=== PATIENT | female | born 2000 | race Caucasian/White ===

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

== ENCOUNTER → 2022-08-05 14:34 | Outpatient (BNVA) | payer MEDICAID, SELFPAY | PROVIDERS: PCP Family Medicine; Visit Provider Nurse Practitioner | DX: R00.0 Tachycardia, unspecified (principal); F41.9 Anxiety disorder, unspecified | CPT/HCPCS: 80053; 84443; 85025 ==

== ENCOUNTER 2023-02-26 10:40 | Outpatient (CLI) | payer MEDICAID, SELFPAY ==
--- NOTE | 2023-02-26 10:47 | XR_ITS ---
WS: [id number] Right shoulder, 2 views, 02/26/2023 Clinical Data: M54.9 - Dorsalgia, unspecified Comparison: None. Findings: No fractures or dislocations are seen. The AC joint is normal. The adjacent right clavicle, right sca pula and ribs are normal. The soft tissues are unremarkable. Impression: Negative right shoulder.
--- NOTE | 2023-02-26 10:47 | XR_ITS ---
WS: [id number] Thoracic spine, 3 views, 02/26/2023 Clinical Data: M54.9 - Dorsalgia, unspecified Comparison: None. Findings: No compression fractures are seen. The disc heights are normal. The paravertebral regions are normal. Impression: Negative thoracic spine.
--- NOTE | 2023-02-26 10:47 | XR_ITS ---
WS: [id number] Right hip, AP and frog-leg views, 02/26/2023 Clinical Data: M54.9 - Dorsalgia, unspecified Comparison: None. Findings: No fractures or dislocations are seen. The right hip joint shows no erosion, sclerosis, flattening, c yst formation or loss of normal spherical shape. The soft tissues are not remarkable. The adjacent pe lvis is normal. Impression: Negative right hip. Tonnis classification: grade 0: normal radiographs
--- NOTE | 2023-02-26 10:47 | XR_ITS ---
WS: [id number] Cervical spine, 3 views, 02/26/2023 Clinical Data: M54.9 - Dorsalgia, unspecified Comparison: None. Findings: No compression fractures are seen. The disc heights are normal. There is no prevertebral so ft tissue swelling. The odontoid is unremarkable. The soft tissues of the neck and the lung apices ar e normal. Impression: Negative cervical spine.
--- NOTE | 2023-02-26 10:47 | XR_ITS ---
WS: [id number] Lumbar spine, 2 views, 02/26/2023 Clinical Data: M54.9 - Dorsalgia, unspecified Comparison: None. Findings: No compression fractures or subluxation is seen. No disc space narrowing is seen. The transverse proc esses and SI joints are normal. Impression: Negative lumbar spine.
== END 2023-02-26 10:41 | disposition home or self-care (01) ==
LOC: RAD 10:44
PROVIDERS: PCP Family Medicine; Visit Provider Nurse Practitioner
DX: M54.2 Cervicalgia (principal); M25.511 Pain in right shoulder; M25.551 Pain in right hip; M54.50 Low back pain, unspecified; M54.6 Pain in thoracic spine
CPT/HCPCS: 72040; 72072; 72100; 73030; 73502

== ENCOUNTER 2023-12-11 01:02 | Emergency (ER) | payer MEDICAID, SELFPAY ==
[2023-12-11 01:08] VITALS: BP 115/76; PULSE 71; RESP 14; TEMP 36.6; O2SAT 100
[2023-12-11 01:52] LABS: Basophils % 0.2 %; Hematocrit 37.4 % (36-47); Lymphocytes # 0.8 10^3/uL (0.8-4.8); Lymphocytes % 4.4 %; Mean Corpuscular Hemoglobin 30.8 pg (27-33); Mean Corpuscular Volume 87.8 fl (85-98); Mean Platelet Volume 10.5 fL (7.4-10.4); Monocytes # 0.5 10^3/uL (0.2-0.9); Neutrophils # 16.83 10^3/uL (1.8-7.7); Nucleated Red Blood Cells % 0 %; Platelet Count 273 10^3/cmm (157-399); Red Blood Count 4.26 10^6/uL (3.85-5.65); Red Cell Distribution Width 11.8 % (12.1-15.1); White Blood Count 18.29 10^3/uL (3.29-11.43)
[2023-12-11] MEDS: ondansetron 2 mg/ML SDV 2 mL 8 MG IVP (01:53)
[2023-12-11] MEDS: sodium chloride 0.9% 1,000 ML 999 ML IV (01:53)
[2023-12-11 02:02] VITALS: BP 126/82; O2SAT 92
[2023-12-11 02:21] LABS: Alanine Aminotransferase 16 U/L (0-33); Albumin Level 4.8 g/dL (3.5-5.2); Alkaline Phosphatase 45 U/L (35-105); Anion Gap 20.8 (5-19); Aspartate Amino Transferase 20 U/L (0-32); Blood Urea Nitrogen 10 mg/dL (6-20); Carbon Dioxide 19 mmol/L (22-29); Chloride 100 mmol/L (98-107); Creatinine Clr Calc Pharmacy 111.1716; Globulin 3.1 g/dL (1.3-4.6); Glomerular Filtration Rate 90.5 mL/min (90-130); Glucose 232 mg/dL (65-115); Magnesium 1.7 mg/dL (1.7-2.3); Osmolality Calculated 288 mOsm/kg (285-295); Potassium 3.8 mmol/L (3.5-5.1); Sodium 136 mmol/L (136-145); Total Bilirubin 0.4 mg/dL (0.15-1.2); Total Protein 7.9 g/dL (6.6-8.7)
[2023-12-11] MEDS: metoclopramide 5 mg/mL SDV 2 mL 10 MG IVP (02:24)
--- NOTE | 2023-12-11 02:27 | W.ED.NAVMDI ---
HPI - Nausea/Vomiting/Diarrhea General: Chief complaint: Nausea/Vomiting/Diarrhea Stated complaint: n/v, body aches, weakness Time Seen by Provider: 12/11/23 01:11 History of Present Illness: Patient arrives to the ER for nausea vomiting chills body aches. Patient says she is throughout more than 20 times a day. Is been going on for about the last 4 days but got severely worse today. Patient is never had anything like this before. She thinks her boyfriend may have given her something. But he is better. Patient denies any abdominal surgeries. Related Data Previous Rx's Medication Instructions Recorded bupropion HCl 75 mg tablet 75 mg PO .in AM #30 tabs 10/14/23 etonogestrel 0.12 mg-ethinyl 1 vag ring vaginal .wear for 3 10/14/23 estradiol 0.015 mg/24 hr vaginal weeks #3 ea ring (NuvaRing) flunisolide 25 mcg (0.025 %) nasal 1 spray intranasal BID #25 mL 10/14/23 spray fluoxetine 20 mg capsule (Prozac) 20 mg PO DAILY #30 caps 10/14/23 levocetirizine 5 mg tablet 5 mg PO DAILY #30 tabs 10/14/23 propranolol 20 mg tablet 20 mg PO BID #60 tabs 10/14/23 ciprofloxacin HCl 500 mg tablet 500 mg PO Q12H #20 tabs 12/11/23 promethazine 25 mg tablet 25 mg PO Q6H PRN nausea and 12/11/23 vomiting #14 tabs Allergies Allergy/AdvReac Type Severity Reaction Status Date / Time No Known Allergies Allergy Verified 12/11/23 01:12 Review of Systems General: Reports: 10 or more systems reviewed and unremarkable except in HPI and below PFSH ED PFSH: Medical History Anxiety Environmental and seasonal allergies Healthy adolescent Surgical History No history of previous surgery Family History Grandfather Diabetes Stroke Denies family history of CAD (coronary artery disease) Dementia Chronic kidney disease (CKD) Anesthesia complication Cancer Hypertension Social History Smoking and tobacco/nicotine status: never used tobacco/nicotine Second hand smoke exposure: No Alcohol intake: never Substance/Drug Use: never Adopted: No Caregiver/support person: No Lives independently: Yes Household members: family Housing: House Marital status: Single Number of children: 0 Highest education level completed: High School Graduate service: No Current occupational status: unemployed and student Pets and animals: Yes Do you think of yourself as: Straight/Heterosexual Current gender identity: Female Female Reproductive History: Date of last menstrual period: 11/27/23 Physical Exam Const: COMMON NORMALS: no acute distress, average body habitus, patient oriented x3, no limitations, healthy appearing, alert and well nourished HENMT: COMMON NORMALS: normocephalic, atraumatic, hearing grossly normal bilaterally, external ears normal, Normal external nose present and moist oral mucous membranes HEAD & SCALP: normocephalic and atraumatic NOSE: Normal external nose present EXTERNAL EAR: Yes external ears normal Neck/C-Spine: COMMON NORMALS: no JVD Chest: COMMONS NORMALS: normal inspection of the chest and normal palpation of entire chest wall Resp: COMMON NORMALS: normal respiratory effort, No retractions, No use of accessory muscles and clear to auscultation bilaterally AUSCULTATION: clear to auscultation bilaterally Cardio: COMMON NORMALS: no JVD, regular rate, regular rhythm, S1 normal heart sound present, S2 normal heart sound present, No gallops present (Cardio), No clicks present (Cardio), No murmurs present (Cardio) and No rub (Cardio) RATE: regular rate RHYTHM: regular rhythm HEART SOUNDS: S1 normal heart sound present and S2 normal heart sound present GI: COMMON NORMALS: Normal to inspection, nondistended, normoactive bowel sounds present, Soft to palpation, No hepatosplenomegaly present and no masses; negative for non-tender (Diffusely tender) PALPATION: Yes Soft to palpation and Yes No hepatosplenomegaly present Neuro: COMMON NORMALS: patient oriented x3 SENSORIUM/ORIENTATION: Yes alert Course Vital Signs: Vital signs: Vital Signs Temperature 97.9 F 12/11/23 01:08 Pulse Rate 66 12/11/23 03:13 Respiratory Rate 14 12/11/23 01:08 Blood Pressure 135/75 12/11/23 03:13 Pulse Oximetry 100 12/11/23 03:13 Oxygen Flow Rate 2 12/11/23 02:02 MDM - Nausea/Vomiting/Diarrhea Medical Decision Making Physical exam was performed, lab work was obtained, white blood cell count 18.29, blood sugar 232, urinalysis positive for 3+ glucose, 4+ ketones 21-50 white blood cells serum ketones negative, procalcitonin negative, patient was bolused 1 L normal saline as well as 8 mg Zofran 10 mg Reglan. Upon reevaluation patient was sleeping soundly. Discussed the lab work with her and her boyfriend. Patient was placed on Cipro and Phenergan and sent home. Patient is follow-up with PCP within next 7 days for further evaluation and treatment. Differential Diagnosis Likely gastroenteritis Medical Records I reviewed the patient's medical records. Lab Data I reviewed the patient's lab results. 12/11/23 01:48 12/11/23 01:48 Laboratory Results WBC 18.29 10^3/uL (3.29-11.43) H 12/11/23 01:48 RBC 4.26 10^6/uL (3.85-5.65) 12/11/23 01:48 Hgb 13.10 g/dL (11.27-16.99) 12/11/23 01:48 Hct 37.4 % (36-47) 12/11/23 01:48 MCV 87.8 fl (85-98) 12/11/23 01:48 MCH 30.8 pg (27-33) 12/11/23 01:48 MCHC 35.0 g/dL (30-55) 12/11/23 01:48 RDW 11.8 % (12.1-15.1) L 12/11/23 01:48 Plt Count 273 10^3/cmm (157-399) 12/11/23 01:48 MPV 10.5 fL (7.4-10.4) H 12/11/23 01:48 Neut % (Auto) 92.0 % 12/11/23 01:48 Lymph % (Auto) 4.4 % 12/11/23 01:48 [place] % (Auto) 3.0 % 12/11/23 01:48 Eos % (Auto) 0.0 % 12/11/23 01:48 Baso % (Auto) 0.2 % 12/11/23 01:48 Neut # (Auto) 16.83 10^3/uL (1.8-7.7) H 12/11/23 01:48 Lymph # (Auto) 0.8 10^3/uL (0.8-4.8) 12/11/23 01:48 [place] # (Auto) 0.5 10^3/uL (0.2-0.9) 12/11/23 01:48 Eos # (Auto) 0.0 10^3/uL (0.0-0.8) 12/11/23 01:48 Baso # (Auto) 0.0 10^3/uL (0.0-0.1) 12/11/23 01:48 Nucleated RBC % (auto) 0 % 12/11/23 01:48 Nucleated RBCs # 0.0 /100WBC 12/11/23 01:48 Sodium 136 mmol/L (136-145) 12/11/23 01:48 Potassium 3.8 mmol/L (3.5-5.1) 12/11/23 01:48 Chloride 100 mmol/L (98-107) 12/11/23 01:48 Carbon Dioxide 19 mmol/L (22-29) L 12/11/23 01:48 Anion Gap 20.8 (5-19) H 12/11/23 01:48 BUN 10 mg/dL (6-20) 12/11/23 01:48 Creatinine 0.8 mg/dL (0.5-0.9) 12/11/23 01:48 GFR Calculation 90.5 mL/min (90-130) 12/11/23 01:48 Glucose 232 mg/dL (65-115) H 12/11/23 01:48 Calculated Osmolality 288 mOsm/kg (285-295) 12/11/23 01:48 Calcium 10.0 mg/dL (8.5-10.5) 12/11/23 01:48 Magnesium 1.7 mg/dL (1.7-2.3) 12/11/23 01:48 Total Bilirubin 0.4 mg/dL (0.15-1.2) 12/11/23 01:48 AST 20 U/L (0-32) 12/11/23 01:48 ALT 16 U/L (0-33) 12/11/23 01:48 Alkaline Phosphatase 45 U/L (35-105) 12/11/23 01:48 Total Protein 7.9 g/dL (6.6-8.7) 12/11/23 01:48 Albumin 4.8 g/dL (3.5-5.2) 12/11/23 01:48 Globulin 3.1 g/dL (1.3-4.6) 12/11/23 01:48 Procalcitonin 0.04 ng/mL (0-0.5) 12/11/23 01:48 HCG, Qual Negative (Negative) 12/11/23 02:35 Urine Color Yellow (Yellow) 12/11/23 02:35 Urine Appearance Slightly cloudy (CLEAR) 12/11/23 02:35 Urine pH 6.0 (5-7) 12/11/23 02:35 Ur Specific [place] 1.034 (1.005-1.030) H 12/11/23 02:35 Urine Protein 1+ (Negative) A 12/11/23 02:35 Urine Glucose (UA) 3+ (Normal) H 12/11/23 02:35 Urine Ketones 4+ (Negative) 12/11/23 02:35 Urine Blood Negative (Negative) 12/11/23 02:35 Urine Nitrate Negative (Negative) 12/11/23 02:35 Urine Bilirubin Negative (Negative) 12/11/23 02:35 Urine Urobilinogen 1.0 mg/dL (Negative) 12/11/23 02:35 Ur Leukocyte Esterase 1+ (Negative) A 12/11/23 02:35 Urine RBC 0-2 /hpf (0-2) 12/11/23 02:35 Urine WBC 21-50 /hpf (0-5) H 12/11/23 02:35 Ur Squamous Epith Cells 5-10 /hpf (0-5) H 12/11/23 02:35 Amorphous Sediment Not Reportable 12/11/23 02:35 Urine Bacteria 3+ /hpf (NONE) H 12/11/23 02:35 Hyaline Casts 2.46 /lpf 12/11/23 02:35 Serum Ketones Negative (Negative) 12/11/23 01:48 All radiology interpretation(s) finalized by discharge Discharge Plan Discharge Patient Disposition: Home Clinical Impression: Gastroenteritis Urinary tract infection Qualifiers: Urinary tract infection type: acute cystitis Hematuria presence: without hematuria Qualified Code(s): N30.00 - Acute cystitis without hematuria Condition: Stable Prescriptions: New ciprofloxacin HCl 500 mg tablet 500 mg PO Q12H Qty: 20 0RF promethazine 25 mg tablet 25 mg PO Q6H PRN (Reason: nausea and vomiting) Qty: 14 0RF No Action etonogestrel-ethinyl estradiol [NuvaRing] 0.12-0.015 mg/24 hr ring 1 vag ring vaginal .wear for 3 weeks Qty: 3 1RF bupropion HCl 75 mg tablet 75 mg PO .in AM Qty: 30 5RF fluoxetine [Prozac] 20 mg capsule 20 mg PO DAILY Qty: 30 5RF levocetirizine 5 mg tablet 5 mg PO DAILY Qty: 30 5RF propranolol 20 mg tablet 20 mg PO BID Qty: 60 5RF flunisolide 25 mcg (0.025 %) spray,non-aerosol 1 spray intranasal BID Qty: 25 5RF Discharge Orders: Discharge ED (Routine); Ordered 12/11/23 Ordered By: Shen Jimenez Referrals: Gokul Carreon, [employer]PERATOR-C [Primary Care Provider] - 1 week Patient Instructions: Acute Nausea and Vomiting (DC), Urinary Tract Infection - Women Activity Restrictions/Additional Instructions: You have been provided a prescription for promethazine for nausea and Cipro as an antibiotic for your urinary tract infection. Please pick these up and take these as directed. Please drink plenty of fluids as to help not to get dehydrated. Please follow-up with your family practitioner within next 7 days for further evaluation and treatment. 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
[2023-12-11 02:40] LABS: HCG Qualitative Urine. Negative (Negative)
[2023-12-11 02:44] LABS: Bilirubin Urine Negative (Negative); Blood Urine Negative (Negative); Glucose Urine UA 3+ (Normal); Ketones Urine 4+ (Negative); Leukocyte Esterase Urine 1+ (Negative); Nitrate Urine Negative (Negative); Protein Urine 1+ (Negative); Urine Color Yellow (Yellow)
[2023-12-11 02:47] LABS: Add Urine Microscopic? YES; Bacteria Urine 3+ /hpf; Hyaline Casts Urine 2.46 /lpf; RBC Urine 0-2 /hpf (0-2); WBC Urine 21-50 /hpf (0-5)
[2023-12-11 02:55] LABS: Specific Gravity, Urine 1.034 (1.005-1.030); UA Slide Review UA Slide Review Perf; Urine Appearance Slightly Cloudy (CLEAR)
[2023-12-11 02:56] LABS: Add Urine Culture? Yes
[2023-12-11 03:04] LABS: Ketone (Acetest) Serum Negative (Negative)
[2023-12-11 03:13] VITALS: BP 135/75; PULSE 66; O2SAT 100
[2023-12-11 03:21] LABS: Procalcitonin 0.04 ng/mL (0-0.5)
[2023-12-11 03:33] VITALS: BP 119/71; PULSE 60; O2SAT 98
[2023-12-11] MEDS: diphenhydrAMINE 50 mg/mL SDV 1mL IVP (04:07)
[2023-12-11 04:16] VITALS: BP 129/72; PULSE 99; O2SAT 90
== END 2023-12-11 04:15 | disposition home or self-care (01) ==
PROVIDERS: Emergency Provider Emergency Medicine; PCP Nurse Practitioner
DX: K52.9 Noninfective gastroenteritis and colitis, unspecified (principal); N30.00 Acute cystitis without hematuria
CPT/HCPCS: 80053; 81001; 81025; 82009; 83735; 84145; 85025; 87086; 96374; 96375; 99284; J1200; J2405; J2765; J7030

== ENCOUNTER 2023-12-13 09:43 | Emergency (ER) | payer MEDICAID, SELFPAY ==
[2023-12-13 09:47] VITALS: BP 117/94; PULSE 106; RESP 18; TEMP 36.8; O2SAT 99; BMI 19.2
--- NOTE | 2023-12-13 09:58 | ED_ITS ---
HPI - Nausea/Vomiting/Diarrhea 2 General: Chief complaint: Nausea/Vomiting/Diarrhea Stated complaint: NVD weak fever chills SOB Time Seen by Provider: 12/13/23 09:47 History of Present Illness: Patient presents to the ED with complaints of nausea vomiting times about the last 6 days. Patient was seen here about 2 days ago for the same thing diagnosed with UTI and sent home with Cipro and Phenergan. She comes back and says it helped for about half a day and then nothing is seem to help ever since then. Patient notes that she is COVID-positive as well as her boyfriend when she has all of nausea vomiting type symptoms and he has none. Patient had so much nausea vomiting has not been keeping of her medicine down. Related Data Previous Rx's Medication Instructions Recorded bupropion HCl 75 mg tablet 75 mg PO .in AM #30 tabs 10/14/23 etonogestrel 0.12 mg-ethinyl 1 vag ring vaginal .wear for 3 10/14/23 estradiol 0.015 mg/24 hr vaginal weeks #3 ea ring (NuvaRing) flunisolide 25 mcg (0.025 %) nasal 1 spray intranasal BID #25 mL 10/14/23 spray fluoxetine 20 mg capsule (Prozac) 20 mg PO DAILY #30 caps 10/14/23 levocetirizine 5 mg tablet 5 mg PO DAILY #30 tabs 10/14/23 propranolol 20 mg tablet 20 mg PO BID #60 tabs 10/14/23 ciprofloxacin HCl 500 mg tablet 500 mg PO Q12H #20 tabs 12/11/23 promethazine 25 mg tablet 25 mg PO Q6H PRN nausea and 12/11/23 vomiting #14 tabs haloperidol 2 mg tablet 1 mg (1/2 x 2 mg) PO Q6H PRN 12/13/23 nausea and vomiting #7 tabs lorazepam 1 mg tablet (Ativan) 1 mg PO Q6H PRN nausea and 12/13/23 vomiting #10 tabs potassium chloride 20 mEq 20 meq PO DAILY #7 tabs 12/13/23 tablet,extended release Allergies Allergy/AdvReac Type Severity Reaction Status Date / Time No Known Allergies Allergy Verified 12/11/23 01:12 Review of Systems 2 General: Reports: 10 or more systems reviewed and unremarkable except in HPI and below PFSH ED 2 PFSH: Medical History Anxiety Environmental and seasonal allergies Healthy adolescent Surgical History No history of previous surgery Family History Grandfather Diabetes Stroke Denies family history of CAD (coronary artery disease) Dementia Chronic kidney disease (CKD) Anesthesia complication Cancer Hypertension Social History Smoking and tobacco/nicotine status: never used tobacco/nicotine Second hand smoke exposure: No Alcohol intake: never Substance/Drug Use: never Adopted: No Caregiver/support person: No Lives independently: Yes Household members: family Housing: House Marital status: Single Number of children: 0 Highest education level completed: High School Graduate service: No Current occupational status: unemployed and student Pets and animals: Yes Do you think of yourself as: Straight/Heterosexual Current gender identity: Female Physical Exam 2 Const: COMMON NORMALS: no acute distress, average body habitus, patient oriented x3, no limitations, healthy appearing, alert and well nourished HENMT: COMMON NORMALS: normocephalic, atraumatic, hearing grossly normal bilaterally, external ears normal, Normal external nose present and moist oral mucous membranes HEAD & SCALP: normocephalic and atraumatic NOSE: Normal external nose present EXTERNAL EAR: Yes external ears normal Neck/C-Spine: COMMON NORMALS: full ROM, no lymphadenopathy, supple, no meningeal signs, no JVD and Thyroid normal THYROID: Thyroid normal Chest: COMMONS NORMALS: normal inspection of the chest and normal palpation of entire chest wall Resp: COMMON NORMALS: normal respiratory effort, No retractions, No use of accessory muscles and clear to auscultation bilaterally AUSCULTATION: clear to auscultation bilaterally Cardio: COMMON NORMALS: no JVD, regular rate, regular rhythm, S1 normal heart sound present, S2 normal heart sound present, No gallops present (Cardio), No clicks present (Cardio), No murmurs present (Cardio) and No rub (Cardio) R ATE: regular rate RHYTHM: regular rhythm HEART SOUNDS: S1 normal heart sound present and S2 normal heart sound present GI: COMMON NORMALS: Normal to inspection, nondistended, normoactive bowel sounds present, Soft to palpation, non-tender, No hepatosplenomegaly present and no masses PALPATION: Yes Soft to palpation and Yes No hepatosplenomegaly present Neuro: COMMON NORMALS: patient oriented x3 SENSORIUM/ORIENTATION: Yes alert MENINGEAL SIGNS: Yes no meningeal signs Course 2 Vital Signs: Vital signs: Vital Signs Temperature 98.2 F 12/13/23 09:47 Pulse Rate 106 H 12/13/23 09:47 Respiratory Rate 18 12/13/23 09:47 Blood Pressure 117/94 12/13/23 11:00 Pulse Oximetry 100 12/13/23 11:00 Oxygen Delivery Me thod Room Air 12/13/23 09:47 MDM - Nausea/Vomiting/Diarrhea Medical Decision Making Lab work was obtained and was compared to lab work 2 days ago, white count is down, potassium is down, patient was given Haldol and Ativan twice which helped the nausea vomiting. Patient we discharged home with oral Haldol and potassium. Take on an as-needed basis and instructed not to smoke any marijuana. Differential Diagnosis Likely gastroenteritis and drug-induced nausea and vomiting Medical Records I reviewed the patient's medical records. Lab Data I reviewed the patient's lab results. 12/13/23 09:52 12/13/23 09:52 Laboratory Results WBC 13.32 10^3/uL (3.29-11.43) H 12/13/23 09:52 RBC 4.85 10^6/uL (3.85-5.65) 12/13/23 09:52 Hgb 14.70 g/dL (11.27-16.99) 12/13/23 09:52 Hct 43.5 % (36-47) 12/13/23 09:52 MCV 89.7 fl (85-98) 12/13/23 09:52 MCH 30.3 pg (27-33) 12/13/23 09:52 MCHC 33.8 g/dL (30-55) 12/13/23 09:52 RDW 12.0 % (12.1-15.1) L 12/13/23 09:52 Plt Count 331 10^3/cmm (157-399) 12/13/23 09:52 MPV 11.1 fL (7.4-10.4) H 12/13/23 09:52 Neut % (Auto) 76.9 % 12/13/23 09:52 Lymph % (Auto) 17.0 % 12/13/23 09:52 [place] % (Auto) 3.5 % 12/13/23 09:52 Eos % (Auto) 1.7 % 12/13/23 09:52 Baso % (Auto) 0.3 % 12/13/23 09:52 Neut # (Auto) 10.24 10^3/uL (1.8-7.7) H 12/13/23 09:52 Lymph # (Auto) 2.3 10^3/uL (0.8-4.8) 12/13/23 09:52 [place] # (Auto) 0.5 10^3/uL (0.2-0.9) 12/13/23 09:52 Eos # (Auto) 0.2 10^3/uL (0.0-0.8) 12/13/23 09:52 Baso # (Auto) 0.0 10^3/uL (0.0-0.1) 12/13/23 09:52 Nucleated RBC % (auto) 0 % 12/13/23 09:52 Nucleated RBCs # 0.0 /100WBC 12/13/23 09:52 Sodium 141 mmol/L (136-145) 12/13/23 09:52 Potassium 3.2 mmol/L (3.5-5.1) L 12/13/23 09:52 Chloride 99 mmol/L (98-107) 12/13/23 09:52 Carbon Dioxide 17 mmol/L (22-29) L 12/13/23 09:52 Anion Gap 28.2 (5-19) H 12/13/23 09:52 BUN 15 mg/dL (6-20) 12/13/23 09:52 Creatinine 0.9 mg/dL (0.5-0.9) 12/13/23 09:52 GFR Calculation 79.0 mL/min (90-130) L 12/13/23 09:52 Glucose 126 mg/dL (65-115) H 12/13/23 09:52 Calculated Osmolality 294 mOsm/kg (285-295) 12/13/23 09:52 Calcium 10.0 mg/dL (8.5-10.5) 12/13/23 09:52 Magnesium 2.0 mg/dL (1.7-2.3) 12/13/23 09:52 Total Bilirubin 0.6 mg/dL (0.15-1.2) 12/13/23 09:52 AST 18 U/L (0-32) 12/13/23 09:52 ALT 16 U/L (0-33) 12/13/23 09:52 Alkaline Phosphatase 48 U/L (35-105) 12/13/23 09:52 Total Protein 8.2 g/dL (6.6-8.7) 12/13/23 09:52 Albumin 4.8 g/dL (3.5-5.2) 12/13/23 09:52 Globulin 3.4 g/dL (1.3-4.6) 12/13/23 09:52 Urine Color Yellow (Yellow) 12/13/23 11:25 Urine Appearance Clear (CLEAR) 12/13/23 11:25 Urine pH 5.5 (5-7) 12/13/23 11:25 Ur Specific [place] 1.028 (1.005-1.030) 12/13/23 11:25 Urine Protein 1+ (Negative) A 12/13/23 11:25 Urine Glucose (UA) Negative (Normal) 12/13/23 11:25 Urine Ketones 4+ (Negative) 12/13/23 11:25 Urine Blood Negative (Negative) 12/13/23 11:25 Urine Nitrate Negative (Negative) 12/13/23 11:25 Urine Bilirubin Negative (Negative) 12/13/23 11:25 Urine Urobilinogen 1.0 mg/dL (Negative) 12/13/23 11:25 Ur Leukocyte Esterase Trace (Negative) A 12/13/23 11:25 Urine RBC 0-2 /hpf (0-2) 12/13/23 11:25 Urine WBC 0-5 /hpf (0-5) 12/13/23 11:25 Ur Squamous Epith Cells 0-5 /hpf (0-5) 12/13/23 11:25 Amorphous Sediment Not Reportable 12/13/23 11:25 Urine Bacteria Trace /hpf (NONE) 12/13/23 11:25 Hyaline Casts 0.81 /lpf 12/13/23 11:25 Urine Opiates Screen Negative ng/mL (Negative) 12/13/23 11:25 Ur Barbiturates Screen Negative ng/mL (Negative) 12/13/23 11:25 Ur Phencyclidine Scrn Negative ng/mL (Negative) 12/13/23 11:25 Ur Amphetamines Screen Negative ng/mL (Negative) 12/13/23 11:25 U Benzodiazepines Scrn Positive ng/mL (Negative) H 12/13/23 11:25 Urine Cocaine Screen Negative ng/mL (Negative) 12/13/23 11:25 U Marijuana (THC) Screen Positive ng/mL (Negative) H 12/13/23 11:25 All radiology interpretation(s) finalized by discharge Discharge Plan Discharge Patient Disposition: Home Clinical Impression: Cannabis abuse with other cannabis-induced disorder, Acute hypokalemia Condition: Stable Prescriptions: New haloperidol 2 mg tablet 1 mg PO Q6H PRN (Reason: nausea and vomiting) Qty: 7 0RF Ativan 1 mg tablet 1 mg PO Q6H PRN (Reason: nausea and vomiting) Qty: 10 0RF potassium chloride 20 mEq tablet extended release 20 meq PO DAILY Qty: 7 0RF No Action etonogestrel-ethinyl estradiol [NuvaRing] 0.12-0.015 mg/24 hr ring 1 vag ring vaginal .wear for 3 weeks Qty: 3 1RF bupropion HCl 75 mg tablet 75 mg PO .in AM Qty: 30 5RF fluoxetine [Prozac] 20 mg capsule 20 mg PO DAILY Qty: 30 5RF levocetirizine 5 mg tablet 5 mg PO DAILY Qty: 30 5RF propranolol 20 mg tablet 20 mg PO BID Qty: 60 5RF flunisolide 25 mcg (0.025 %) spray,non-aerosol 1 spray intranasal BID Qty: 25 5RF ciprofloxacin HCl 500 mg tablet 500 mg PO Q12H Qty: 20 0RF promethazine 25 mg tablet 25 mg PO Q6H PRN (Reason: nausea and vomiting) Qty: 14 0RF Discharge Orders: Discharge ED (Routine); Ordered 12/13/23 Ordered By: Shen Jimenez Referrals: Gokul Carreon FNP-C [Primary Care Provider] - 1 week Patient Instructions: Hypokalemia (ED) Activity Restrictions/Additional Instructions: Your lab work in ER was unremarkable except for low potassium and marijuana presents in your urine. It is thought that this marijuana is causing you to have hyperemesis. It is suggested you do not use any more of it. Your potassium was also low. You have been prescribed potassium as well. Please use all your medicine as directed. Please follow-up with your family practice physician within next 7 days. 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
[2023-12-13 10:07] LABS: Basophils % 0.3 %; Eosinophils # 0.2 10^3/uL (0.0-0.8); Eosinophils % 1.7 %; Hematocrit 43.5 % (36-47); Lymphocytes # 2.3 10^3/uL (0.8-4.8); Mean Corpuscular HGB Conc 33.8 g/dL (30-55); Mean Corpuscular Hemoglobin 30.3 pg (27-33); Mean Corpuscular Volume 89.7 fl (85-98); Mean Platelet Volume 11.1 fL (7.4-10.4); Monocytes # 0.5 10^3/uL (0.2-0.9); Monocytes % 3.5 %; Neutrophils # 10.24 10^3/uL (1.8-7.7); Neutrophils % 76.9 %; Nucleated Red Blood Cells % 0 %; Platelet Count 331 10^3/cmm (157-399); Red Blood Count 4.85 10^6/uL (3.85-5.65); White Blood Count 13.32 10^3/uL (3.29-11.43)
[2023-12-13] MEDS: sodium chloride 0.9% 1,000 ML 999 ML IV (10:11)
[2023-12-13] MEDS: LORazepam 2 mg/mL INJ 1 mL 1 MG IVP ×2 (10:12→12:12)
[2023-12-13] MEDS: haloperidol inj 5 mg/mL INJ 1 mL 2 MG IVP ×2 (10:13→12:11)
[2023-12-13 10:18] LABS: Alanine Aminotransferase 16 U/L (0-33); Albumin Level 4.8 g/dL (3.5-5.2); Alkaline Phosphatase 48 U/L (35-105); Anion Gap 28.2 (5-19); Aspartate Amino Transferase 18 U/L (0-32); Blood Urea Nitrogen 15 mg/dL (6-20); Carbon Dioxide 17 mmol/L (22-29); Chloride 99 mmol/L (98-107); Creatinine Clr Calc Pharmacy 98.8192; Globulin 3.4 g/dL (1.3-4.6); Glucose 126 mg/dL (65-115); Osmolality Calculated 294 mOsm/kg (285-295); Potassium 3.2 mmol/L (3.5-5.1); Sodium 141 mmol/L (136-145); Total Bilirubin 0.6 mg/dL (0.15-1.2); Total Protein 8.2 g/dL (6.6-8.7)
[2023-12-13 11:00] VITALS: BP 117/94; O2SAT 100
[2023-12-13 11:41] LABS: Bilirubin Urine Negative (Negative); Blood Urine Negative (Negative); Glucose Urine UA Negative (Normal); Ketones Urine 4+ (Negative); Leukocyte Esterase Urine Trace (Negative); Nitrate Urine Negative (Negative); Protein Urine 1+ (Negative); Specific Gravity, Urine 1.028 (1.005-1.030); Urine Appearance Clear (CLEAR); Urine Color Yellow (Yellow); pH Urine 5.5 (5-7)
[2023-12-13 11:43] LABS: Add Urine Microscopic? YES; Bacteria Urine Trace /hpf; Hyaline Casts Urine 0.81 /lpf; RBC Urine 0-2 /hpf (0-2); Squamous Epithelial Cell Urine 0-5 /hpf (0-5); WBC Urine 0-5 /hpf (0-5)
[2023-12-13 11:48] LABS: Amphetamines Screen Urine Negative (Negative); Barbiturates Screen Urine Negative (Negative); Benzodiazepines Screen Urine Positive (Negative); Cocaine Screen Urine Negative (Negative); Opiate Screen Urine Negative (Negative); PCP Screen Urine Negative (Negative); THC Screen Urine Positive (Negative)
[2023-12-13 13:48] VITALS: BP 125/75; PULSE 107; O2SAT 99
== END 2023-12-13 13:49 | disposition home or self-care (01) ==
PROVIDERS: Emergency Provider Emergency Medicine; PCP Nurse Practitioner
DX: F12.188 Cannabis abuse with other cannabis-induced disorder (principal); E87.6 Hypokalemia
CPT/HCPCS: 80053; 80306; 81001; 83735; 85025; 96374; 96375; 96376; 99284; J1630; J2060; J7030

== ENCOUNTER 2024-01-14 19:27 | Emergency (ER) | payer OTHER, MEDICAID, SELFPAY ==
[2024-01-14 19:30] VITALS: BP 118/84; PULSE 66; RESP 16; TEMP 36.4; O2SAT 100
[2024-01-14 20:55] VITALS: BP 137/68; PULSE 69; O2SAT 99
[2024-01-14 21:00] VITALS: BP 137/68; PULSE 77; O2SAT 99
[2024-01-14 21:04] LABS: Bilirubin Urine Negative (Negative); Blood Urine Negative (Negative); Glucose Urine UA Negative (Normal); Ketones Urine 2+ (Negative); Leukocyte Esterase Urine Trace (Negative); Nitrate Urine Negative (Negative); Protein Urine 1+ (Negative); Urine Appearance Clear (CLEAR)
[2024-01-14 21:09] LABS: Add Urine Microscopic? YES; Bacteria Urine None Seen /hpf; Hyaline Casts Urine 2.46 /lpf; RBC Urine 0-2 /hpf (0-2); Squamous Epithelial Cell Urine 0-5 /hpf (0-5); WBC Urine 0-5 /hpf (0-5)
--- NOTE | 2024-01-14 21:16 | PC.NURSE ---
PER DR. DOWNEY, ORDER AND ADMIN ATIVAN 0.5MG IVP ONCE
--- NOTE | 2024-01-14 21:18 | ED_ITS ---
HPI - Nausea/Vomiting/Diarrhea 2 General: Chief complaint: Nausea/Vomiting/Diarrhea Stated complaint: n/v/d urgent care sent SOB Time Seen by Provider: 01/14/24 20:52 History of Present Illness: Patient presents to the ER from urgent care with uncontrolled nausea vomiting diarrhea and abdominal pain. She says she has had this for about a week. She has had this before but has not had any previous episodes in a long time. Patient says she was sent over here for further evaluation and IV fluids from the urgent care. Patient is been around no sick contacts. Related Data Previous Rx's Medication Instructions Recorded bupropion HCl 75 mg tablet 75 mg PO .in AM #30 tabs 10/14/23 etonogestrel 0.12 mg-ethinyl 1 vag ring vaginal .wear for 3 10/14/23 estradiol 0.015 mg/24 hr vaginal weeks #3 ea ring (NuvaRing) levocetirizine 5 mg tablet 5 mg PO DAILY #30 tabs 10/14/23 propranolol 20 mg tablet 20 mg PO BID #60 tabs 10/14/23 fluoxetine 40 mg capsule 40 mg PO DAILY #30 caps 12/29/23 meloxicam 15 mg tablet 15 mg PO DAILY #30 tabs 12/29/23 ondansetron HCl 4 mg tablet 4 mg PO Q8H PRN nausea and 01/14/24 vomiting #14 tabs Allergies Allergy/AdvReac Type Severity Reaction Status Date / Time No Known Allergies Allergy Verified 01/14/24 19:35 Review of Systems 2 General: Reports: 10 or more systems reviewed and unremarkable except in HPI and below PFSH ED 2 PFSH: Medical History Anxiety Environmental and seasonal allergies Healthy adolescent Surgical History No history of previous surgery Family History Grandfather Diabetes Stroke Denies family history of CAD (coronary artery disease) Dementia Chronic kidney disease (CKD) Anesthesia complication Cancer Hypertension Social History Smoking and tobacco/nicotine status: unknown if used tobacco/nicotine Second hand smoke exposure: No Alcohol intake: never Substance/Drug Use: never Adopted: No Caregiver/support person: No Lives independently: Yes Household members: family Housing: House Marital status: Single Number of children: 0 Highest education level completed: High School Graduate service: No Current occupational status: unemployed and student Pets and animals: Yes Do you think of yourself as: Straight/Heterosexual Current gender identity: Female Physical Exam 2 Const: COMMON NORMALS: no acute distress, average body habitus, patient oriented x3, no limitations, healthy appearing, alert and well nourished HENMT: COMMON NORMALS: normocephalic, atraumatic, hearing grossly normal bilaterally, external ears normal, Normal external nose present and moist oral mucous membranes HEAD & SCALP: normocephalic and atraumatic NOSE: Normal external nose present EXTERNAL EAR: Yes external ears normal Neck/C-Spine: COMMON NORMALS: full ROM, no lymphadenopathy, supple, no meningeal signs, no JVD and Thyroid normal THYROID: Thyroid normal Chest: COMMONS NORMALS: normal inspection of the chest and normal palpation of entire chest wall Resp: COMMON NORMALS: normal respiratory effort, No retractions, No use of accessory muscles and clear to auscultation bilaterally AUSCULTATION: clear to auscultation bilaterally Cardio: COMMON NORMALS: no JVD, regular rate, regular rhythm, S1 normal heart sound present, S2 normal heart sound present, No gallops present (Cardio), No clicks present (Cardio), No murmurs present (Cardio) and No rub (Cardio) R ATE: regular rate RHYTHM: regular rhythm HEART SOUNDS: S1 normal heart sound present and S2 normal heart sound present GI: COMMON NORMALS: Normal to inspection, nondistended, normoactive bowel sounds present, Soft to palpation, No hepatosplenomegaly present and no masses; negative for non-tender (Mildly diffusely tender) PALPATION: Yes Soft to palpation and Yes No hepatosplenomegaly present Neuro: COMMON NORMALS: patient oriented x3 SENSORIUM/ORIENTATION: Yes alert MENINGEAL SIGNS: Yes no meningeal signs Course 2 Vital Signs: Vital signs: Vital Signs Temperature 97.6 F 01/14/24 19:30 Pulse Rate 63 01/14/24 22:30 Respiratory Rate 16 01/14/24 19:30 Blood Pressure 112/85 01/14/24 22:30 Pulse Oximetry 99 01/14/24 22:30 Oxygen Delivery Me thod Room Air 01/14/24 21:30 MDM - Nausea/Vomiting/Diarrhea Medical Decision Making Patient presents to the ER with uncontrolled nausea vomiting. Patient is dehydrated. Patient's lab work was essentially unremarkable except potassium 3.4, urinalysis showed 2+ ketones specific gravity 1.034. Patient was given a total of about 1500 mL of normal saline, 8 mg Zofran, 30 mg of Toradol, 0.5 mg of Ativan. Patient was sleeping soundly upon recheck. Patient be discharged home. Medical Records I reviewed the patient's medical records. Lab Data I reviewed the patient's lab results. 01/14/24 21:39 01/14/24 21:39 Laboratory Results WBC 8.38 10^3/uL (3.29-11.43) 01/14/24 21: RBC 4.45 10^6/uL (3.85-5.65) 01/14/24 21:39 Hgb 13.50 g/dL (11.27-16.99) 01/14/24 21:39 Hct 40.4 % (36-47) 01/14/24 21:39 MCV 90.8 fl (85-98) 01/14/24 21:39 MCH 30.3 pg (27-33) 01/14/24 21:39 MCHC 33.4 g/dL (30-55) 01/14/24 21:39 RDW 12.5 % (12.1-15.1) 01/14/24 21:39 Plt Count 256 10^3/cmm (157-399) 01/14/24 21:39 MPV 10.8 fL (7.4-10.4) H 01/14/24 21:39 Neut % (Auto) 70.9 % 01/14/24 21:39 Lymph % (Auto) 24.3 % 01/14/24 21:39 [place] % (Auto) 3.9 % 01/14/24 21:39 Eos % (Auto) 0.2 % 01/14/24 21:39 Baso % (Auto) 0.5 % 01/14/24 21:39 Neut # (Auto) 5.93 10^3/uL (1.8-7.7) 01/14/24 21:39 Lymph # (Auto) 2.0 10^3/uL (0.8-4.8) 01/14/24 21:39 [place] # (Auto) 0.3 10^3/uL (0.2-0.9) 01/14/24 21:39 Eos # (Auto) 0.0 10^3/uL (0.0-0.8) 01/14/24 21:39 Baso # (Auto) 0.0 10^3/uL (0.0-0.1) 01/14/24 21:39 Nucleated RBC % (auto) 0 % 01/14/24 21:39 Nucleated RBCs # 0.0 /100WBC 01/14/24 21:39 Sodium 141 mmol/L (136-145) 01/14/24 21:39 Potassium 3.4 mmol/L (3.5-5.1) L 01/14/24 21:39 Chloride 107 mmol/L (98-107) 01/14/24 21:39 Carbon Dioxide 20 mmol/L (22-29) L 01/14/24 21:39 Anion Gap 17.4 (5-19) 01/14/24 21:39 BUN 10 mg/dL (6-20) 01/14/24 21:39 Creatinine 0.7 mg/dL (0.5-0.9) 01/14/24 21:39 GFR Calculation 105.6 mL/min (90-130) 01/14/24 21:39 Glucose 87 mg/dL (65-115) 01/14/24 21:39 Calculated Osmolality 290 mOsm/kg (285-295) 01/14/24 21:39 Calcium 9.0 mg/dL (8.5-10.5) 01/14/24 21:39 Magnesium 2.0 mg/dL (1.7-2.3) 01/14/24 21:39 Total Bilirubin 0.5 mg/dL (0.15-1.2) 01/14/24 21:39 AST 14 U/L (0-32) 01/14/24 21:39 ALT 11 U/L (0-33) 01/14/24 21:39 Alkaline Phosphatase 41 U/L (35-105) 01/14/24 21:39 Total Protein 7.4 g/dL (6.6-8.7) 01/14/24 21:39 Albumin 4.6 g/dL (3.5-5.2) 01/14/24 21:39 Globulin 2.8 g/dL (1.3-4.6) 01/14/24 21:39 Lipase 13 U/L (13-60) 01/14/24 21:39 Urine Color Dark yellow (Yellow) A 01/14/24 20:46 Urine Appearance Clear (CLEAR) 01/14/24 20:46 Urine pH 6.0 (5-7) 01/14/24 20:46 Ur Specific [place] 1.034 (1.005-1.030) H 01/14/24 20:46 Urine Protein 1+ (Negative) A 01/14/24 20:46 Urine Glucose (UA) Negative (Normal) 01/14/24 20:46 Urine Ketones 2+ (Negative) H 01/14/24 20:46 Urine Blood Negative (Negative) 01/14/24 20:46 Urine Nitrate Negative (Negative) 01/14/24 20:46 Urine Bilirubin Negative (Negative) 01/14/24 20:46 Urine Urobilinogen 1.0 mg/dL (Negative) 01/14/24 20:46 Ur Leukocyte Esterase Trace (Negative) A 01/14/24 20:46 Urine RBC 0-2 /hpf (0-2) 01/14/24 20:46 Urine WBC 0-5 /hpf (0-5) 01/14/24 20:46 Ur Squamous Epith Cells 0-5 /hpf (0-5) 01/14/24 20:46 Amorphous Sediment Not Reportable 01/14/24 20:46 Urine Bacteria None seen /hpf (NONE) 01/14/24 20:46 Hyaline Casts 2.46 /lpf 01/14/24 20:46 All radiology interpretation(s) finalized by discharge Discharge Plan Discharge Patient Disposition: Home Clinical Impression: Gastroenteritis Condition: Stable Prescriptions: New ondansetron HCl 4 mg tablet 4 mg PO Q8H PRN (Reason: nausea and vomiting) Qty: 14 0RF No Action fluoxetine 40 mg capsule 40 mg PO DAILY Qty: 30 11RF meloxicam 15 mg tablet 15 mg PO DAILY Qty: 30 11RF Rx Instructions: take with food etonogestrel-ethinyl estradiol [NuvaRing] 0.12-0.015 mg/24 hr ring 1 vag ring vaginal .wear for 3 weeks Qty: 3 1RF bupropion HCl 75 mg tablet 75 mg PO .in AM Qty: 30 5RF levocetirizine 5 mg tablet 5 mg PO DAILY Qty: 30 5RF propranolol 20 mg tablet 20 mg PO BID Qty: 60 5RF Discharge Orders: Discharge ED (Routine); Ordered 01/14/24 Ordered By: Shen Jimenez Referrals: Gokul Carreon, [employer] [Primary Care Provider] - 1 week Patient Instructions: Acute Nausea and Vomiting (DC) Activity Restrictions/Additional Instructions: Thank you for choosing [facility] for your healthcare needs today. Please realize that you were seen in the emergency department and that we are providing you with an emergency medical screening exam and this may not be a complete and all exclusive of all testing and/or medical workup we may need to determine your element or severity of your illness. It is very important that you follow-up as instructed with your primary care provider or specialist for the additional evaluation and to discuss your medical treatment plan. You may return to the emergency department should you have concerns or if your condition changes or worsens in any way. 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
[2024-01-14 21:19] LABS: Specific Gravity, Urine 1.034 (1.005-1.030); Urine Color Dark Yellow (Yellow)
[2024-01-14] MEDS: LORazepam 2 mg/mL INJ 1 mL 0.5 MG IVP (21:21)
[2024-01-14] MEDS: ondansetron 2 mg/ML SDV 2 mL 8 MG IVP (21:21)
[2024-01-14] MEDS: ketorolac 30 mg/mL INJ IVP (21:23)
[2024-01-14] MEDS: sodium chloride 0.9% 1,000 ML 999 ML IV (21:24)
[2024-01-14 21:30] VITALS: PULSE 62; O2SAT 100
[2024-01-14 21:48] LABS: Basophils % 0.5 %; Eosinophils % 0.2 %; Hematocrit 40.4 % (36-47); Lymphocytes % 24.3 %; Mean Corpuscular HGB Conc 33.4 g/dL (30-55); Mean Corpuscular Hemoglobin 30.3 pg (27-33); Mean Corpuscular Volume 90.8 fl (85-98); Mean Platelet Volume 10.8 fL (7.4-10.4); Monocytes # 0.3 10^3/uL (0.2-0.9); Monocytes % 3.9 %; Neutrophils # 5.93 10^3/uL (1.8-7.7); Neutrophils % 70.9 %; Nucleated Red Blood Cells % 0 %; Platelet Count 256 10^3/cmm (157-399); Red Blood Count 4.45 10^6/uL (3.85-5.65); Red Cell Distribution Width 12.5 % (12.1-15.1); White Blood Count 8.38 10^3/uL (3.29-11.43)
[2024-01-14 22:05] LABS: Alanine Aminotransferase 11 U/L (0-33); Albumin Level 4.6 g/dL (3.5-5.2); Alkaline Phosphatase 41 U/L (35-105); Anion Gap 17.4 (5-19); Aspartate Amino Transferase 14 U/L (0-32); Blood Urea Nitrogen 10 mg/dL (6-20); Carbon Dioxide 20 mmol/L (22-29); Chloride 107 mmol/L (98-107); Creatinine Clr Calc Pharmacy 105.5994; Globulin 2.8 g/dL (1.3-4.6); Glomerular Filtration Rate 105.6 mL/min (90-130); Glucose 87 mg/dL (65-115); Lipase 13 U/L (13-60); Osmolality Calculated 290 mOsm/kg (285-295); Potassium 3.4 mmol/L (3.5-5.1); Sodium 141 mmol/L (136-145); Total Bilirubin 0.5 mg/dL (0.15-1.2); Total Protein 7.4 g/dL (6.6-8.7)
[2024-01-14 22:30] VITALS: BP 112/85; PULSE 63; O2SAT 99
[2024-01-14 23:00] VITALS: BP 118/73; PULSE 58; O2SAT 97
[2024-01-14] MEDS: sodium chloride 0.9% 500 ML 999 ML IV (23:11)
[2024-01-15 00:28] VITALS: BP 113/77; PULSE 74; O2SAT 97
== END 2024-01-15 00:22 | disposition home or self-care (01) ==
PROVIDERS: Emergency Provider Emergency Medicine; PCP Nurse Practitioner
DX: K52.9 Noninfective gastroenteritis and colitis, unspecified (principal)
CPT/HCPCS: 36415; 80053; 81001; 83690; 83735; 85025; 96374; 96375; 99284; J1885; J2060; J2405; J7030; J7040

== ENCOUNTER 2024-01-30 13:22 | Emergency (ER) | payer OTHER, MEDICAID, SELFPAY ==
--- NOTE | 2024-01-30 13:39 | XRR_ITS ---
PROCEDURE INFORMATION: Exam: XR Chest Exam date and time: 01/30/2024 2:00 PM Age: 23 years old Clinical indication: Patient HX: Weakness; Cough; Fever; Chest congestion TECHNIQUE: Imaging protocol: Radiologic exam of the chest. Views: 1 view. COMPARISON: CR XR cervical spine 3V* [id number] 02/26/2023 10:54 AM FINDINGS: Lungs: Unremarkable. No consolidation. Pleural spaces: Unremarkable. No pleural effusion. No pneumothorax. Heart/Mediastinum: Unremarkable. No cardiomegaly. Bones/joints: Unremarkable. XR/XR chest 1V portable [id number] IMPRESSION: No acute findings.
[2024-01-30 13:51] VITALS: BP 125/82; PULSE 72; RESP 14; TEMP 36.9; O2SAT 98
[2024-01-30 14:07] LABS: Bilirubin Urine Negative (Negative); Blood Urine Negative (Negative); Glucose Urine UA Negative (Normal); Ketones Urine 2+ (Negative); Leukocyte Esterase Urine Negative (Negative); Nitrate Urine Negative (Negative); Protein Urine Negative (Negative); Specific Gravity, Urine 1.022 (1.005-1.030); Urine Appearance Clear (CLEAR); Urine Color Yellow (Yellow); pH Urine 5.5 (5-7)
[2024-01-30 14:12] LABS: Add Urine Microscopic? YES; Bacteria Urine None Seen /hpf; Hyaline Casts Urine 0.81 /lpf; RBC Urine 0-2 /hpf (0-2); Squamous Epithelial Cell Urine 0-5 /hpf (0-5); WBC Urine 0-5 /hpf (0-5)
[2024-01-30 14:31] LABS: Basophils # 0.1 10^3/uL (0.0-0.1); Basophils % 0.9 %; Eosinophils # 0.1 10^3/uL (0.0-0.8); Hematocrit 39.6 % (36-47); Lymphocytes # 2.7 10^3/uL (0.8-4.8); Lymphocytes % 40.3 %; Mean Corpuscular HGB Conc 32.8 g/dL (30-55); Mean Corpuscular Hemoglobin 30.2 pg (27-33); Mean Corpuscular Volume 92.1 fl (85-98); Mean Platelet Volume 10.3 fL (7.4-10.4); Monocytes # 0.4 10^3/uL (0.2-0.9); Monocytes % 5.8 %; Neutrophils % 51.9 %; Nucleated Red Blood Cells % 0 %; Platelet Count 283 10^3/cmm (157-399); Red Cell Distribution Width 12.5 % (12.1-15.1); White Blood Count 6.75 10^3/uL (3.29-11.43)
[2024-01-30 14:39] LABS: Covid PCR NEGATIVE (Negative); Influenza A NEGATIVE (Negative); Influenza B NEGATIVE (Negative); Respiratory Syncytial Virus Ce NEGATIVE (Negative)
[2024-01-30 14:42] LABS: HCG, Serum Qual Negative (Negative)
[2024-01-30 14:52] LABS: Alanine Aminotransferase 17 U/L (0-33); Albumin Level 4.4 g/dL (3.5-5.2); Alkaline Phosphatase 36 U/L (35-105); Anion Gap 13.9 (5-19); Aspartate Amino Transferase 17 U/L (0-32); Blood Urea Nitrogen 12 mg/dL (6-20); Calcium 8.7 mg/dL (8.5-10.5); Carbon Dioxide 22 mmol/L (22-29); Chloride 104 mmol/L (98-107); Creatinine Clr Calc Pharmacy 87.6194; Globulin 2.8 g/dL (1.3-4.6); Glomerular Filtration Rate 90.5 mL/min (90-130); Glucose 88 mg/dL (65-115); Lipase 21 U/L (13-60); Magnesium 1.9 mg/dL (1.7-2.3); Osmolality Calculated 281 mOsm/kg (285-295); Potassium 3.9 mmol/L (3.5-5.1); Sodium 136 mmol/L (136-145); Total Bilirubin 0.4 mg/dL (0.15-1.2); Total Protein 7.2 g/dL (6.6-8.7)
--- NOTE | 2024-01-30 15:27 | ED_ITS ---
HPI - Abdominal Pain 2 General: Chief Complaint: Abdominal Pain Stated Complaint: abd pain, n/v Time Seen by Provider: 01/30/24 14:43 History of Present Illness: 23-year-old female who presents to the e mergency room with complaint of persistent nausea and vomiting. In the last 2 to 3 weeks she has had a total of 5 ER visits now and this is her fourth year and she has had 1 in [place]. She has tried various over prescription antiemetics with no relief. She denies any hematuria hematemesis coffee-ground emesis she does have bilious like vomiting. No hematochezia or melena no dysuria urgency or frequency or hematuria. No history of kidney stones. She does have a little bit of flank pain she thinks it may be from heaving. No fever sweats or chills no cough or shortness of breath. She does use recreational marijuana once a week in the form of flower. Associated Symptoms: Denies chills, dysuria and fever(s) Related Data Date of Last Menstrual Period: 01/30/24 Previous Rx's Medication Instructions Recorded bupropion HCl 75 mg tablet 75 mg PO .in AM #30 tabs 10/14/23 etonogestrel 0.12 mg-ethinyl 1 vag ring vaginal .wear for 3 10/14/23 estradiol 0.015 mg/24 hr vaginal weeks #3 ea ring (NuvaRing) levocetirizine 5 mg tablet 5 mg PO DAILY #30 tabs 10/14/23 propranolol 20 mg tablet 20 mg PO BID #60 tabs 10/14/23 fluoxetine 40 mg capsule 40 mg PO DAILY #30 caps 12/29/23 meloxicam 15 mg tablet 15 mg PO DAILY #30 tabs 12/29/23 lorazepam 2 mg tablet (Ativan) 2 mg sublingual TID PRN nausea and 01/30/24 vomiting #14 tabs olanzapine 10 mg disintegrating 10 mg PO Q8H #14 tabs 01/30/24 tablet pantoprazole 40 mg tablet,delayed 40 mg PO BID 10 days #40 tabs 01/30/24 release Allergies Allergy/AdvReac Type Severity Reaction Status Date / Time No Known Allergies Allergy Verified 01/30/24 13:55 Review of Systems 2 Const: Denies: fever(s) or chills Card: Denies: chest pain Resp: Denies: dyspnea GI: Denies: abdominal pain : Reports: flank pain; Denies: dysuria, urinary frequency or urinary urgency Musc: Denies: neck pain or back pain Skin/Breast: Denies: rash PFSH ED 2 PFSH: Medical History Anxiety Environmental and seasonal allergies Healthy adolescent Surgical History No history of previous surgery Family History Grandfather Diabetes Stroke Denies family history of CAD (coronary artery disease) Dementia Chronic kidney disease (CKD) Anesthesia complication Cancer Hypertension Social History Smoking and tobacco/nicotine status: unknown if used tobacco/nicotine Second hand smoke exposure: No Alcohol intake: never Substance/Drug Use: never Adopted: No Caregiver/support person: No Lives independently: Yes Household members: family Housing: House Marital status: Single Number of children: 0 Highest education level completed: High School Graduate service: No Current occupational status: unemployed and student Pets and animals: Yes Do you think of yourself as: Straight/Heterosexual Current gender identity: Female Female Reproductive History: Date of last menstrual period: 01/30/24 Physical Exam 2 Const: GENERAL APPEARANCE: cooperative ORIENTATION/CONSCIOUSNESS: Yes awake, Yes oriented to person, Yes oriented to place and Yes oriented to time HENMT: COMMON NORMALS: normocephalic, atraumatic and hearing grossly normal bilaterally HEAD & SCALP: normocephalic and atraumatic Resp: COMMON NORMALS: normal respiratory effort, No retractions, No use of accessory muscles and clear to auscultation bilaterally AUSCULTATION: clear to auscultation bilaterally Cardio: COMMON NORMALS: regular rate, regular rhythm and No murmurs present (Cardio) RATE: regular rate RHYTHM: regular rhythm GI: COMMON NORMALS: No hepatosplenomegaly present AUSCULTATION: Yes normoactive bowel sounds PALPATION: Yes Tenderness to palpation present (GI), No Guarding due to palpation present (GI) and Yes No hepatosplenomegaly present : BLADDER/KIDNEY EXAM: Yes CVA tenderness Back/Pelvis: GENERAL BACK: Yes CVA tenderness Extremity: COMMON NORMALS: normal to inspection, capillary refill normal, no clubbing, cyanosis or edema, no calf tenderness and no pedal edema Neuro: SENSORIUM/ORIENTATION: Yes oriented to person, Yes oriented to place and Yes oriented to time Skin: COMMON NORMALS: no rashes or lesions noted GENERAL SKIN EXAM: no rashes or lesions noted Course 2 Vital Signs: Vital signs: Vital Signs Temperature 98.5 F 01/30/24 13:51 Pulse Rate 73 01/30/24 15:58 Respiratory Rate 14 01/30/24 13:51 Blood Pressure 138/83 01/30/24 15:58 Pulse Oximetry 100 01/30/24 15:58 Oxygen Delivery Me thod Room Air 01/30/24 15:58 MDM - Abdominal Pain Medical Decision Making Nausea and vomiting improved after the Haldol and Ativan. She is not on any PPIs. Will start her on Protonix 40 twice daily for 10 days then 40 once daily. Additionally give her olanzapine and Ativan to use as needed. Gave a reflux diet. She has an appointment with GI later this week. Also discussed avoiding marijuana products. However she is not eating a lot of regular menorrhagia products at this point. Nonetheless would avoid completely. Medical Records I reviewed the patient's medical records. Lab Data I reviewed the patient's lab results. 01/30/24 14:26 01/30/24 14:26 Labs/Radiology: Radiology Impressions Chest X-Ray 01/30/24 13:39 IMPRESSION: No acute findings. Abdomen/Pelvis CT 01/30/24 15:38 IMPRESSION: No acute findings. Laboratory Results WBC 6.75 10^3/uL (3.29-11.43) 01/30/24 14:26 RBC 4.30 10^6/uL (3.85-5.65) 01/30/24 14:26 Hgb 13.00 g/dL (11.27-16.99) 01/30/24 14:26 Hct 39.6 % (36-47) 01/30/24 14:26 MCV 92.1 fl (85-98) 01/30/24 14:26 MCH 30.2 pg (27-33) 01/30/24 14: MCHC 32.8 g/dL (30-55) 01/30/24 14:26 RDW 12.5 % (12.1-15.1) 01/30/24 14: Plt Count 283 10^3/cmm (157-399) 01/30/24 14: MPV 10.3 fL (7.4-10.4) 01/30/24 14:26 Neut % (Auto) 51.9 % 01/30/24 14:26 Lymph % (Auto) 40.3 % 01/30/24 14:26 [place] % (Auto) 5.8 % 01/30/24 14:26 Eos % (Auto) 1.0 % 01/30/24 14:26 Baso % (Auto) 0.9 % 01/30/24 14: Neut # (Auto) 3.50 10^3/uL (1.8-7.7) 01/30/24 14:26 Lymph # (Auto) 2.7 10^3/uL (0.8-4.8) 01/30/24 14:26 [place] # (Auto) 0.4 10^3/uL (0.2-0.9) 01/30/24 14:26 Eos # (Auto) 0.1 10^3/uL (0.0-0.8) 01/30/24 14:26 Baso # (Auto) 0.1 10^3/uL (0.0-0.1) 01/30/24 14:26 Nucleated RBC % (auto) 0 % 01/30/24 14: Nucleated RBCs # 0.0 /100WBC 01/30/24 14:26 Sodium 136 mmol/L (136-145) 01/30/24 14:26 Potassium 3.9 mmol/L (3.5-5.1) 01/30/24 14:26 Chloride 104 mmol/L (98-107) 01/30/24 14:26 Carbon Dioxide 22 mmol/L (22-29) 01/30/24 14:26 Anion Gap 13.9 (5-19) 01/30/24 14:26 BUN 12 mg/dL (6-20) 01/30/24 14:26 Creatinine 0.8 mg/dL (0.5-0.9) 01/30/24 14:26 GFR Calculation 90.5 mL/min (90-130) 01/30/24 14:26 Glucose 88 mg/dL (65-115) 01/30/24 14:26 Calculated Osmolality 281 mOsm/kg (285-295) L 01/30/24 14:26 Calcium 8.7 mg/dL (8.5-10.5) 01/30/24 14:26 Magnesium 1.9 mg/dL (1.7-2.3) 01/30/24 14:26 Total Bilirubin 0.4 mg/dL (0.15-1.2) 01/30/24 14:26 AST 17 U/L (0-32) 01/30/24 14:26 ALT 17 U/L (0-33) 01/30/24 14:26 Alkaline Phosphatase 36 U/L (35-105) 01/30/24 14:26 Total Protein 7.2 g/dL (6.6-8.7) 01/30/24 14: Albumin 4.4 g/dL (3.5-5.2) 01/30/24 14: Globulin 2.8 g/dL (1.3-4.6) 01/30/24 14:26 Lipase 21 U/L (13-60) 01/30/24 14:26 HCG, Qual Negative (Negative) 01/30/24 14:26 Urine Color Yellow (Yellow) 01/30/24 14:00 Urine Appearance Clear (CLEAR) 01/30/24 14:00 Urine pH 5.5 (5-7) 01/30/24 14:00 Ur Specific [place] 1.022 (1.005-1.030) 01/30/24 14:00 Urine Protein Negative (Negative) 01/30/24 14:00 Urine Glucose (UA) Negative (Normal) 01/30/24 14:00 Urine Ketones 2+ (Negative) H 01/30/24 14:00 Urine Blood Negative (Negative) 01/30/24 14:00 Urine Nitrate Negative (Negative) 01/30/24 14:00 Urine Bilirubin Negative (Negative) 01/30/24 14:00 Urine Urobilinogen 1.0 mg/dL (Negative) 01/30/24 14:00 Ur Leukocyte Esterase Negative (Negative) 01/30/24 14:00 Urine RBC 0-2 /hpf (0-2) 01/30/24 14:00 Urine WBC 0-5 /hpf (0-5) 01/30/24 14:00 Ur Squamous Epith Cells 0-5 /hpf (0-5) 01/30/24 14:00 Amorphous Sediment Not Reportable 01/30/24 14:00 Urine Bacteria None seen /hpf (NONE) 01/30/24 14:00 Hyaline Casts 0.81 /lpf 01/30/24 14:00 Coronavirus (PCR) Negative (Negative) 01/30/24 14:00 Influenza A (PCR) Negative (Negative) 01/30/24 14:00 Influenza Type B (PCR) Negative (Negative) 01/30/24 14:00 RSV (PCR) Negative (Negative) 01/30/24 14:00 All radiology interpretation(s) finalized by discharge Discharge Plan Discharge Patient Disposition: Home Clinical Impression: Nausea & vomiting Condition: Stable Prescriptions: New pantoprazole 40 mg tablet,delayed release (DR/EC) 40 mg PO BID 10 Days Qty: 40 0RF lorazepam [Ativan] 2 mg tablet 2 mg sublingual TID PRN (Reason: nausea and vomiting) Qty: 14 0RF olanzapine 10 mg tablet,disintegrating 10 mg PO Q8H Qty: 14 0RF Discontinued ondansetron HCl 4 mg tablet 4 mg PO Q8H PRN (Reason: nausea and vomiting) Qty: 14 0RF No Action fluoxetine 40 mg capsule 40 mg PO DAILY Qty: 30 11RF meloxicam 15 mg tablet 15 mg PO DAILY Qty: 30 11RF Rx Instructions: take with food etonogestrel-ethinyl estradiol [NuvaRing] 0.12-0.015 mg/24 hr ring 1 vag ring vaginal .wear for 3 weeks Qty: 3 1RF bupropion HCl 75 mg tablet 75 mg PO .in AM Qty: 30 5RF levocetirizine 5 mg tablet 5 mg PO DAILY Qty: 30 5RF propranolol 20 mg tablet 20 mg PO BID Qty: 60 5RF Discharge Orders: Discharge ED (Routine); Ordered 01/30/24 Ordered By: Wilfred Westfall Referrals: Gokul Carreon, [employer] [Primary Care Provider] - Discharge Diet: As Directed Discharge Activity: Increase activity as tolerated Patient Instructions: Diet for Stomach Ulcers and Gastritis (ED), Opioid Safety, Pain Management Activity Restrictions/Additional Instructions: Thank you for choosing [facility] for your healthcare needs today. It is very important that you follow up as instructed or that you return to the Emergency Department should you have concerns or if your condition changes or worsens in any way. You are seen in the emergency room this persistent abdominal pain cramping and nausea and vomiting. Did have improvement with Haldol and Ativan in the emergency room. Will discharge you home with Ativan to use buccal mucosa and olanzapine sublingual as needed. Additionally start on pantoprazole 40 mg 1 pill twice a day for 10 days then once daily. Keep your appointment with gastroenterology clinic as scheduled. 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
--- NOTE | 2024-01-30 15:38 | CTR_ITS ---
PROCEDURE INFORMATION: Exam: CT Abdomen And Pelvis With Contrast Exam date and time: 01/30/2024 4:07 PM Age: 23 years old Clinical indication: Nausea and vomiting; Abdominal pain; Generalized; Additional info: Abd pain TECHNIQUE: Imaging protocol: Computed tomography of the abdomen and pelvis with contrast. Radiation optimization: All CT scans at this facility use at least one of these dose optimization techniques: automated exposure control; mA and/or kV adjustment per patient size (includes targeted exams where dose is matched to clinical indication); or iterative reconstruction. Contrast material: OMNI 350; Contrast volume: 75 ml; Contrast route: INTRAVENOUS (IV); COMPARISON: CR XR hip RT 2-3V wo/w pel* [id number] 02/26/2023 10:54 AM RADIATION DOSE METRICS: Total DLP (mGy-cm): 313.68 FINDINGS: Liver: Normal. No mass. Gallbladder and biliary ducts: Normal. No calcified stones. No ductal dilation. Pancreas: Normal. No ductal dilation. Spleen: Normal. No splenomegaly. Adrenal glands: Normal. No mass. Kidneys and ureters: Normal. No hydronephrosis. Stomach and bowel: Unremarkable. No obstruction. No mucosal thickening. Appendix: No evidence of appendicitis. Intraperitoneal space: Unremarkable. No free air. No significant fluid collection. Vasculature: Unremarkable. No abdominal aortic aneurysm. Lymph nodes: Unremarkable. No enlarged lymph nodes. Urinary bladder: Unremarkable as visualized. Reproductive: Unremarkable as visualized. Bones/joints: No acute fracture. Soft tissues: Unremarkable. CT/CT abdomen pelvis w con* [id number] IMPRESSION: No acute findings.
[2024-01-30] MEDS: haloperidol inj 5 mg/mL INJ 1 mL 2.5 MG IVP (15:54)
[2024-01-30] MEDS: LORazepam 2 mg/mL INJ 1 mL 1 MG IVP (15:55)
[2024-01-30 15:58] VITALS: BP 138/83; PULSE 73; O2SAT 100
[2024-01-30] MEDS: iohexol 350 mg/mL 500 mL Btl (per mL) IV (16:09)
[2024-01-30 17:41] VITALS: BP 127/80; PULSE 78; O2SAT 99
== END 2024-01-30 17:42 | disposition home or self-care (01) ==
PROVIDERS: Emergency Provider Family Medicine; PCP Nurse Practitioner
DX: R11.2 Nausea with vomiting, unspecified (principal); Z11.52 Encounter for screening for COVID-19
CPT/HCPCS: 0241U; 36415; 71045; 74177; 80053; 81001; 83690; 83735; 84703; 85025; 96374; 96375; 99285; J1630; J2060

== ENCOUNTER → 2024-03-31 08:21 | Outpatient (BNVA) | payer OTHER, SELFPAY | PROVIDERS: PCP Family Medicine; Visit Provider Family Medicine | DX: R51.9 Headache, unspecified (principal); R10.9 Unspecified abdominal pain | CPT/HCPCS: 82784; 83516; 86003; 86008 ==

== ENCOUNTER 2024-04-18 09:54 | Outpatient (CLI) | payer OTHER, MEDICAID, SELFPAY ==
--- NOTE | 2024-04-18 10:00 | NM_ITS ---
WS: [id number] NUCLEAR MEDICINE HIDA SCAN CLINICAL INFORMATION: evaluate GB, recurrent n/v/ abd pain TECHNIQUE: Following intravenous administration of 7.4 mCi of technetium 99m mebrofenin, images of th e abdomen were obtained over the course of 60 minutes. Next, gallbladder ejection fraction was determ ined by obtaining preprandial and one-hour postprandial images of the gallbladder following oral redd stion of Ensure. FINDINGS: Normal hepatic uptake at 5 minutes. Normal hepatic excretion. Gallbladder is visualized at 15 minutes . No evidence of acute cholecystitis. Normal common bile duct and small bowel activity. Gallbladder ejection fraction 84% within normal limits. No evidence of chronic cholecystitis. NM/NM hepatobiliary w phar* [id number] IMPRESSION: 1. No evidence of acute or chronic cholecystitis. 2. Gallbladder ejection fraction 84% within normal limits.
== END 2024-04-18 09:55 | disposition home or self-care (01) ==
LOC: RAD 09:56
PROVIDERS: PCP Family Medicine; Visit Provider Family Medicine
DX: R10.9 Unspecified abdominal pain (principal); R93.3 Abnormal findings on diagnostic imaging of other parts of digestive tract
CPT/HCPCS: 78227; A9537

== ENCOUNTER → 2024-04-28 16:06 | Outpatient (BNVA) | payer OTHER, MEDICAID, SELFPAY | PROVIDERS: PCP Family Medicine; Visit Provider Obstetrics & Gynecology | DX: Z30.9 Encounter for contraceptive management, unspecified (principal); Z30.430 Encounter for insertion of intrauterine contraceptive device | CPT/HCPCS: 81025 ==

== ENCOUNTER 2024-05-13 07:59 | Emergency (ER) | payer OTHER, MEDICAID, SELFPAY ==
[2024-05-13 09:12] LABS: Basophils # 0.1 10^3/uL (0.0-0.1); Basophils % 0.6 %; Eosinophils % 0.1 %; Hematocrit 43.3 % (36-47); Lymphocytes # 1.2 10^3/uL (0.8-4.8); Lymphocytes % 14.5 %; Mean Corpuscular HGB Conc 33.5 g/dL (30-55); Mean Corpuscular Hemoglobin 31.2 pg (27-33); Mean Corpuscular Volume 93.1 fl (85-98); Mean Platelet Volume 10.3 fL (7.4-10.4); Monocytes # 0.3 10^3/uL (0.2-0.9); Monocytes % 3.4 %; Neutrophils # 6.67 10^3/uL (1.8-7.7); Neutrophils % 81.2 %; Nucleated Red Blood Cells % 0 %; Platelet Count 276 10^3/cmm (157-399); Red Blood Count 4.65 10^6/uL (3.85-5.65); Red Cell Distribution Width 12.2 % (12.1-15.1); White Blood Count 8.22 10^3/uL (3.29-11.43)
[2024-05-13 09:13] VITALS: BP 133/81; PULSE 96; RESP 18; TEMP 36.9; O2SAT 100; BMI 16.5
--- NOTE | 2024-05-13 09:21 | US_ITS ---
WS: [id number] US transvaginal [id number] HISTORY: pelvic pain COMPARISON: 01/30/2024 Uterus: 8.1 cm x 3.9 cm x 2.9 cm. Normal size anteverted uterus. No fibroid or mass. Endometrium: 0.8 cm. Normal appearance of the endometrium is visualized. There is an IUD in good position along the central canal. Right ovary: 4.4 cm x 2.4 cm x 2.5 cm. Normal size ovary. There is a small amount of fluid in the RIGHT adnexa adjacent to the ovary. Several small follicles. Left ovary: 3.1 cm x 2.4 cm x 2.0 cm. Normal size ovary with several small follicles. Tiny amount of free fluid in the pelvis. US/US transvaginal [id number] IMPRESSION: 1. Normally positioned IUD. 2. Small bilateral ovarian follicles. Number of follicles does not fit ultraso und criteria for polycystic ovarian syndrome. 3. Normal uterus.
--- NOTE | 2024-05-13 09:22 | W.ED.ABDPA2 ---
HPI - Abdominal Pain General: Chief Complaint: Abdominal Pain Stated Complaint: sever lower abd pain Time Seen by Provider: 05/13/24 08:06 Source: patient Mode of arrival: ambulatory Limitations: no limitations History of Present Illness: Patient is a 23-year-old female who presents to ED today with a complaint of lower abdominal/pelvic pain. Patient states she has been having intermittent episodes over the past several months that seem to correlate around the time of her menstrual cycle. She states she gets severe pain, nausea, and occasionally vomiting and diarrhea. She states because of her nausea and vomiting she then cannot hold down her medications and she feels overly anxious. Patient states she has been seeing her primary care provider for the symptoms. She has had a negative CT scan back in January. She had a negative HIDA scan last month. At some point she underwent EGD at [facility] in [place] which was unremarkable. Reports occasional alcohol use. She does take meloxicam daily. States she uses marijuana approximately once a week. She currently has a copper IUD. She states her primary care provider thinks this may be related to endometriosis. She does have an upcoming appointment with OBGYN next month. MD elicited complaint: abdominal pain Pertinent past history: none Onset (ago): month(s) Pain Consistency: intermittent Location: Pelvis Severity: moderate Quality: cramping and sharp Radiation: none Migration to: no migration Relieving factors: nothing Associated Symptoms: Reports chills, diarrhea, nausea and vomiting; Denies dysuria, fever(s), hematochezia, hematuria, melena and syncope Related Data Date of Last Menstrual Period: 05/08/24 Home Medications ?Medication ?Instructions ?Recorded ?Confirmed etonogestrel 0.12 mg-ethinyl 1 vag ring vaginal Q21D 05/13/24 05/13/24 estradiol 0.015 mg/24 hr vaginal ring (EluRyng) fluoxetine 20 mg capsule 20 mg PO DAILY 05/13/24 05/13/24 propranolol 20 mg tablet 20 mg PO BID 05/13/24 05/13/24 Previous Rx's ?Medication ?Instructions ?Recorded bupropion HCl 75 mg tablet 75 mg PO .in AM #30 tabs 10/14/23 levocetirizine 5 mg tablet 5 mg PO DAILY #30 tabs 10/14/23 meloxicam 15 mg tablet 15 mg PO DAILY #30 tabs 12/29/23 venlafaxine 75 mg capsule,extended 75 mg PO DAILY #30 caps 03/02/24 release 24 hr (Effexor XR) tramadol 50 mg tablet 50 mg PO Q6H PRN pain #14 tabs 05/13/24 Allergies Allergy/AdvReac Type Severity Reaction Status Date / Time No Known Allergies Allergy Verified 05/13/24 09:22 Review of Systems Const: Reports: chills; Denies: fever(s), fatigue or malaise Eyes: Denies: change in vision, photophobia or seeing flashes ENMT: Denies: throat pain, odynophagia, nasal discharge, nasal congestion or sinus pain Card: Denies: chest pain, palpitations, irregular heart rhythm, edema, swelling of feet/ankles, lightheadedness, syncope or pre-syncope Resp: Denies: dyspnea GI: Reports: abdominal pain, nausea, vomiting and diarrhea; Denies: hematochezia or melena : Denies: flank pain, difficulty voiding, dysuria, urinary frequency, urinary urgency, urinary hesitancy, hematuria, genital pruritis, vaginal odor or vaginal discharge Musc: Denies: neck pain, back pain, extremity pain, extremity swelling, joint swelling or joint redness Skin/Breast: Denies: rash Neuro: Denies: headache(s), numbness in extremities, weakness in extremities, sensory changes or dizziness Psych: Reports: anxiety and depression PFSH ED PFSH: Medical History Depression Anxiety Environmental and seasonal allergies Healthy adolescent Surgical History No history of previous surgery Family History Grandfather Diabetes Stroke Denies family history of CAD (coronary artery disease) Dementia Chronic kidney disease (CKD) Anesthesia complication Cancer Hypertension Social History Smoking and tobacco/nicotine status: unknown if used tobacco/nicotine Second hand smoke exposure: No Alcohol intake: never Substance/Drug Use: never Adopted: No Caregiver/support person: No Lives independently: Yes Household members: family Housing: House Marital status: Single Number of children: 0 Highest education level completed: High School Graduate service: No Current occupational status: unemployed and student Pets and animals: Yes Do you think of yourself as: Straight/Heterosexual Current gender identity: Female Female Reproductive History: Date of last menstrual period: 05/08/24 Physical Exam Const: COMMON NORMALS: no acute distress, average body habitus, patient oriented x3, no limitations, healthy appearing, alert and well nourished GENERAL APPEARANCE: cooperative and anxious ORIENTATION/CONSCIOUSNESS: Yes awake, Yes oriented to person, Yes oriented to place and Yes oriented to time HENMT: COMMON NORMALS: normocephalic and atraumatic HEAD & SCALP: normal to inspection, normocephalic and atraumatic Eye: COMMON NORMALS: no scleral icterus Neck/C-Spine: COMMON NORMALS: full ROM, no lymphadenopathy, supple and no meningeal signs Chest: COMMONS NORMALS: normal inspection of the chest Resp: COMMON NORMALS: normal respiratory effort and clear to auscultation bilaterally AUSCULTATION: clear to auscultation bilaterally Cardio: COMMON NORMALS: regular rate and regular rhythm RATE: regular rate RHYTHM: regular rhythm GI: COMMON NORMALS: Normal to inspection, nondistended, normoactive bowel sounds present, Soft to palpation, No hepatosplenomegaly present and no masses INSPECTION: Yes normal to inspection AUSCULTATION: Yes normoactive bowel sounds PALPATION: Yes Soft to palpation, Yes Tenderness to palpation present (GI) (lower abdomen/pelvis), No Guarding due to palpation present (GI), No Rigid due to palpation and Yes No hepatosplenomegaly present : COMMON NORMALS: Yes no CVA tenderness BLADDER/KIDNEY EXAM: Yes no CVA tenderness Back/Pelvis: COMMON NORMALS: no CVA tenderness and thoracic and lumbar spine normal to inspection Extremity: COMMON NORMALS: normal to inspection GENERAL: Yes normal exam except as noted Neuro: COMMON NORMALS: patient oriented x3, moves all extremities, no focal motor deficits, no sensory deficits noted and gait normal SENSORIUM/ORIENTATION: Yes alert, Yes oriented to person, Yes oriented to place and Yes oriented to time MENINGEAL SIGNS: Yes no meningeal signs Skin: COMMON NORMALS: no rashes or lesions noted GENERAL SKIN EXAM: no rashes or lesions noted Course Vital Signs: Vital signs: Vital Signs Temperature 98.4 F 05/13/24 09:13 Pulse Rate 96 05/13/24 09:13 Respiratory Rate 18 02/21/25 09:13 Blood Pressure 133/81 05/13/24 09:13 Pulse Oximetry 100 05/13/24 09:13 Oxygen Delivery Me thod Room Air 05/13/24 09:13 MDM - Abdominal Pain Medical Decision Making Patient here for intermittent episodes of lower abdominal/pelvic pain that have been present for the past several months. They seem to come around her menstrual cycle. Primary care had concerns for endometriosis. She does have an appointment set up with [facility] for next month. She arrives in no acute distress. Vital signs are stable. Her blood work here is unremarkable. Mild dehydration probable with 3+ ketones on her urine and a slightly elevated anion gap. She was given a liter of fluids. Transvaginal ultrasound essentially normal. Small bilateral ovarian follicles are seen. At this point she has already underwent HIDA scan, EGD, CT imaging over the past several months for evaluation of this pain. I think it is reasonable for her to continue plan to follow-up with [facility]. Medical Records I reviewed the patient's medical records. Lab Data I reviewed the patient's lab results. 05/13/24 08:58 05/13/24 08:58 Labs/Radiology: Radiology Impressions Transvaginal US 05/13/24 09:21 IMPRESSION: 1. Normally positioned IUD. 2. Small bilateral ovarian follicles. Number of follicles does not fit ultrasound criteria for polycystic ovarian syndrome. 3. Normal uterus. Laboratory Results WBC 8.22 10^3/uL (3.29-11.43) 05/13/24 08:58 RBC 4.65 10^6/uL (3.85-5.65) 05/13/24 08:58 Hgb 14.50 g/dL (11.27-16.99) 05/13/24 08:58 Hct 43.3 % (36-47) 05/13/24 08:58 MCV 93.1 fl (85-98) 05/13/24 08:58 MCH 31.2 pg (27-33) 05/13/24 08:58 MCHC 33.5 g/dL (30-55) 05/13/24 08:58 RDW 12.2 % (12.1-15.1) 05/13/24 08:58 Plt Count 276 10^3/cmm (157-399) 05/13/24 08:58 MPV 10.3 fL (7.4-10.4) 05/13/24 08:58 Neut % (Auto) 81.2 % 05/13/24 08:58 Lymph % (Auto) 14.5 % 05/13/24 08:58 [place] % (Auto) 3.4 % 05/13/24 08:58 Eos % (Auto) 0.1 % 05/13/24 08:58 Baso % (Auto) 0.6 % 05/13/24 08:58 Neut # (Auto) 6.67 10^3/uL (1.8-7.7) 05/13/24 08:58 Lymph # (Auto) 1.2 10^3/uL (0.8-4.8) 05/13/24 08:58 [place] # (Auto) 0.3 10^3/uL (0.2-0.9) 05/13/24 08:58 Eos # (Auto) 0.0 10^3/uL (0.0-0.8) 05/13/24 08:58 Baso # (Auto) 0.1 10^3/uL (0.0-0.1) 05/13/24 08:58 Nucleated RBC % (auto) 0 % 05/13/24 08:58 Nucleated RBCs # 0.0 /100WBC 05/13/24 08:58 Sodium 137 mmol/L (136-145) 05/13/24 08:58 Potassium 4.0 mmol/L (3.5-5.1) 05/13/24 08:58 Chloride 100 mmol/L (98-107) 05/13/24 08:58 Carbon Dioxide 19 mmol/L (22-29) L 05/13/24 08:58 Anion Gap 22.0 (5-19) H 05/13/24 08:58 BUN 15 mg/dL (6-20) 05/13/24 08:58 Creatinine 0.7 mg/dL (0.5-0.9) 05/13/24 08:58 GFR Calculation 105.6 mL/min (90-130) 05/13/24 08:58 Glucose 86 mg/dL (65-115) 05/13/24 08:58 Calculated Osmolality 284 mOsm/kg (285-295) L 05/13/24 08:58 Calcium 10.0 mg/dL (8.5-10.5) 05/13/24 08:58 Total Bilirubin 0.7 mg/dL (0.15-1.2) 05/13/24 08:58 AST 19 U/L (0-32) 05/13/24 08:58 ALT 15 U/L (0-33) 05/13/24 08:58 Alkaline Phosphatase 54 U/L (35-105) 05/13/24 08:58 Total Protein 7.7 g/dL (6.6-8.7) 05/13/24 08:58 Albumin 4.7 g/dL (3.5-5.2) 05/13/24 08:58 Globulin 3.0 g/dL (1.3-4.6) 05/13/24 08:58 Lipase 12 U/L (13-60) L 05/13/24 08:58 HCG, Qual Negative (Negative) 05/13/24 08:58 Urine Color Yellow (Yellow) 05/13/24 09:31 Urine Appearance Clear (CLEAR) 05/13/24 09:31 Urine pH 5.5 (5-7) 05/13/24 09:31 Ur Specific [place] 1.027 (1.005-1.030) 05/13/24 09:31 Urine Protein 1+ (Negative) A 05/13/24 09:31 Urine Glucose (UA) Negative (Normal) 05/13/24 09:31 Urine Ketones 3+ (Negative) H 05/13/24 09:31 Urine Blood Negative (Negative) 05/13/24 09:31 Urine Nitrate Negative (Negative) 05/13/24 09:31 Urine Bilirubin Negative (Negative) 05/13/24 09:31 Urine Urobilinogen 0.2 mg/dL (Negative) 05/13/24 09:31 Ur Leukocyte Esterase Negative (Negative) 05/13/24 09:31 Urine RBC None /hpf (0-2) 05/13/24 09:31 Urine WBC None /hpf (0-5) 05/13/24 09:31 Ur Squamous Epith Cells 0-4 /hpf (0-5) H 05/13/24 09:31 Amorphous Sediment Not Reportable 05/13/24 09:31 Urine Bacteria Trace /hpf (NONE) 05/13/24 09:31 Hyaline Casts None /lpf 05/13/24 09:31 All radiology interpretation(s) finalized by discharge Discharge Plan Discharge Patient Disposition: Home Clinical Impression: Pelvic pain Condition: Stable Prescriptions: Continued tramadol 50 mg tablet 50 mg PO Q6H PRN (Reason: pain) Qty: 14 0RF No Action meloxicam 15 mg tablet 15 mg PO DAILY Qty: 30 11RF Rx Instructions: take with food bupropion HCl 75 mg tablet 75 mg PO .in AM Qty: 30 5RF levocetirizine 5 mg tablet 5 mg PO DAILY Qty: 30 5RF venlafaxine [Effexor XR] 75 mg capsule,extended release 24hr 75 mg PO DAILY Qty: 30 11RF propranolol 20 mg tablet 20 mg PO BID fluoxetine 20 mg capsule 20 mg PO DAILY etonogestrel-ethinyl estradiol [EluRyng] 0.12-0.015 mg/24 hr ring 1 vag ring VAGINAL Q21D Discharge Orders: Discharge ED (Routine); Ordered 05/13/24 Ordered By: Tana Soares Referrals: Saran Salazar MD [Primary Care Provider] - Activity Restrictions/Additional Instructions: As we discussed, please keep your follow-up appointment with women's health next month for further evaluation. You may return to the emergency department at any point for any further concerns you may have. Print Language: Maori Coding Level of Care Code ED Sleeve Wheel Maker for Bessie Yee
[2024-05-13 09:28] LABS: HCG, Serum Qual Negative (Negative)
[2024-05-13 09:33] LABS: Alanine Aminotransferase 15 U/L (0-33); Albumin Level 4.7 g/dL (3.5-5.2); Alkaline Phosphatase 54 U/L (35-105); Aspartate Amino Transferase 19 U/L (0-32); Blood Urea Nitrogen 15 mg/dL (6-20); Carbon Dioxide 19 mmol/L (22-29); Chloride 100 mmol/L (98-107); Creatinine Clr Calc Pharmacy 101.9568; Glomerular Filtration Rate 105.6 mL/min (90-130); Glucose 86 mg/dL (65-115); Osmolality Calculated 284 mOsm/kg (285-295); Sodium 137 mmol/L (136-145); Total Bilirubin 0.7 mg/dL (0.15-1.2); Total Protein 7.7 g/dL (6.6-8.7)
[2024-05-13] MEDS: ketorolac 30 mg/mL INJ IVP (09:44)
[2024-05-13 09:45] LABS: Bilirubin Urine Negative (Negative); Blood Urine Negative (Negative); Glucose Urine UA Negative (Normal); Ketones Urine 3+ (Negative); Leukocyte Esterase Urine Negative (Negative); Nitrate Urine Negative (Negative); Protein Urine 1+ (Negative); Specific Gravity, Urine 1.027 (1.005-1.030); Urine Appearance Clear (CLEAR); Urine Color Yellow (Yellow); Urobilinogen Urine 0.2 mg/dL (Negative); pH Urine 5.5 (5-7)
[2024-05-13] MEDS: ondansetron 2 mg/ML SDV 2 mL 4 MG IVP (09:45)
[2024-05-13] MEDS: LORazepam 2 mg/mL INJ 1 mL 0.5 MG IVP (09:46)
[2024-05-13 09:50] LABS: Lipase 12 U/L (13-60)
[2024-05-13 10:17] LABS: Add Urine Microscopic? YES; Bacteria Urine TRACE /hpf; Squamous Epithelial Cell Urine 0-4 /hpf (0-5); UA Manual Slide Review YES; UA Slide Review UA Slide Review Perf
[2024-05-13] MEDS: sodium chloride 0.9% 1,000 ML 999 ML IV (10:29)
[2024-05-13 12:10] VITALS: BP 131/79; PULSE 82; O2SAT 100
[2024-05-13 12:20] VITALS: BP 131/79; PULSE 81; O2SAT 100
== END 2024-05-13 12:23 | disposition home or self-care (01) ==
PROVIDERS: Family Medicine; Emergency Provider Physician Assistant; PCP Family Medicine
DX: R10.2 Pelvic and perineal pain (principal)
CPT/HCPCS: 36415; 76830; 80053; 81001; 83690; 84703; 85025; 96374; 96375; 99284; J1885; J2060; J2405; J7030

== ENCOUNTER 2024-10-05 08:16 | Emergency (ER) | payer OTHER, MEDICAID, SELFPAY ==
--- OUTSIDE RECORDS SUMMARY | 2023-03-03 10:41 | XMS_ITS | Continuity of Care Document ---
Author Organization [facility] Address [address] [id number], [place] [address] Phone Care Team Providers Care Cooking Chef Name Role Phone Tolu Gottlieb DDS Unavailable [...] Diagnoses Date Provider Providers Copied on Encounter [facility], [id number], [id number], [place] tel:[phone] [facility] No Information 3 Chery Motley. [address] [place] [address], [address], [place]. tel:[phone] [facility], [id number], [id number], [place] tel:[phone] [facility] Encounter for dental exam and cleaning w/o abnormal findingsEncounter for test, result unknown 3 Chery Motley. [address] [place] [address], [address], [place]. tel:[phone] Referring Provider: Tolu Gottlieb, [address] [place] [address], [address]. tel:[phone] [facility], [id number], [id number], [place] tel:[phone] [address] [facility] Encounter for dental exam and cleaning w/o abnormal findings 3 Chery Motley. [address] [place] [address], [address], . tel:[phone] Referring Provider: Tolu Gottlieb, [address] [place] [address], [facility]. tel:[phone] [facility], [id number], [id number], [place] tel:[phone] [facility] No Information 3 Chery Motley. [address] [place] [address], [address], . tel:[phone] [facility], [id number], [id number], [place] tel:[phone] [facility] Encounter for dental exam and cleaning w/o abnormal findings 3 Chery Motley. [address] [place] [address], [address], . tel:[phone] Referring Provider: Tolu Gottlieb, [address] [place] [address], [facility]. tel:[phone] Family History Family Member Type Diagnosis Age At Onset No Information Payers Payer name Insurance type Covered green party ID Matthew estes(s) D [employer] CI [id number] Social History Type Description Quantity Date Captured [...]
--- OUTSIDE RECORDS SUMMARY | 2024-02-08 07:30 | XMS_ITS ---
Author Organization [facility] Address [address] [place] [address] Care Team Providers Care Supervisor Telephone Information Name Role Phone Saran Salazar Primary Care Provider Farzaneh Craig Unavailable [phone] Perry Baptiste Unavailable [phone] REASON FOR VISIT N/V, gerd, wt loss Encounters Encounter Location Date Provider Diagnosis [facility] [address] [place] [id number] 02/08/2024 Perry Baptiste Plan Of Treatment No Information Progress Notes * Anna MORENO EDOB:2000 (24 yo F)Acc No.[id number]:02/08/2024 History and Physical Patient: Anna GORDON Provider: Robert Baptiste MD :2000 A ge:23 Y S ex:Female Date:02/08/2024 Address:[address] [place] [id number] Pcp:Saran Salazar Check Out:09:58 AM [employer] F[employer] Subjective: * Chief Complaints: * N /V, gerd, wt loss Billing Information: * Procedure Codes: * Electronic signature of Chalino Baptiste MD on 10/05/2024 at 08:25 AM CDT Sign off status: Pending * Provider: Robert Baptiste MD Date: 04/09/2023 Generated for Marizai ishmael/Tyrell/eTransmitting on: 0 10/05/2024 08:25 AM CDT
[2024-10-05] VITALS (7 sets, daily range): BP systolic 95–131; BP diastolic 54–88; PULSE 60–97; RESP 16; TEMP 36.5; O2SAT 96–100; BMI 16.2
--- OUTSIDE RECORDS SUMMARY | 2024-10-05 08:25 | XMS_ITS | Patient Health Record ---
Author Organization [facility] Address [address] [place] [address] Care Team Providers Care Dogman/Woman Name Role Phone Saran Salazar Primary Care Provider UnavailFarzaneh Ramos Unavailable [phone] Emile Perry Unavailable [phone] Fabi Lorenzana Unavailable [phone] Allergies No Known Allergies Results Component Value Reference [place] [id number] Reviewed date:03/09/2024 09:44:12 AM Interpretation: Performing Lab: Notes/Report: Strep Screen A negative Culture Stool [id number], [id number], 22375, 43623, 49817 Reviewed date:02/22/2024 03:35:07 PM Interpretation: Performing Lab: Notes/Report: Culture Stool Patien ANNA MORENO Culture Stool t: Culture Stool Culture Stool Accessio [id number] Culture Stool n: Culture Stool Microbiology Culture Stool PROCEDURE: Culture Stool [O1] Culture Stool SOURCE: Stool BODY SITE: Culture Stool COLLECTED DATE/TIME: 02/02/2024 15:00 HOSPICE DIRECTOR RECEIVED DATE/TIME: 02/02/2024 15:13 HOSPICE DIRECTOR Culture Stool START DATE/TIME: 02/02/2024 15:13 HOSPICE DIRECTOR FREE TEXT SOURCE: Culture Stool FINAL REPORT Culture Stool Final Report [] Culture Stool Verified Date/Time: 02/06/2024 09:26 HOSPICE DIRECTOR Culture Stool No Salmonella isolated Culture Stool No Shigella isolated Culture Stool No Yersinia isolated Culture Stool No Vibrio isolated Culture Stool No Campylobacter isolated Culture Stool No Aeromonas isolated Culture Stool No Plesiomonas isolated Culture Stool No Klebsiella oxytoc a isolated Culture Stool Order Comments Culture Stool O1: Culture Stool (Culture Stool [id number], 42892, 78541, [id number], [id number]) Culture Stool Diagnosis Descriptio n: Diarrhea, unspecified Giardia/Cryptosporidium Scre [place] [id number], [id number] Reviewed date:02/03/2024 09:23:32 AM Interpretation: Performing Lab: Notes/Report: Giardia/Cryptosporidi um Screen ANNA Reid Giardia/Cryptosporidi um Screen t: Giardia/Cryptosporidi um Screen Giardia/Cryptosporidi um Screen Accessio [id number] Giardia/Cryptosporidi um Screen n: Giardia/Cryptosporidi um Screen Microbiology Giardia/Cryptosporidi um Screen PROCEDURE: Giardia/Cryptosporidiu m Giardia/Cryptosporidi um Screen Screen [O1] Giardia/Cryptosporidi um Screen SOURCE: Stool BODY SITE: Giardia/Cryptosporidi um Screen COLLECTED DATE/TIME: 02/02/2024 15:00 HOSPICE DIRECTOR RECEIVED DATE/TIME: 02/02/2024 15:13 HOSPICE DIRECTOR Giardia/Cryptosporidi um Screen START DATE/TIME: 02/02/2024 15:13 HOSPICE DIRECTOR FREE TEXT SOURCE: Giardia/Cryptosporidi um Screen FINAL REPORT Giardia/Cryptosporidi um Screen Final Report [] Giardia/Cryptosporidi um Screen Verified Date/Time: 02/02/2024 16:06 HOSPICE DIRECTOR Giardia/Cryptosporidi um Screen Negative for Giardia/Cryptosporidiu m Antigen Giardia/Cryptosporidi um Screen Order Comments Giardia/Cryptosporidi um Screen O1: Giardia/Cryptosporidiu m Screen (Giardia/Cryptosporidi um Screen [id number], [id number]) Giardia/Cryptosporidi um Screen Diagnosis Description: Diarrhea, unspecified H.Pylori Antigen-Stool [id number] Reviewed date:02/22/2024 03:40:21 PM Interpretation: Performing Lab: Notes/Report: Diagnosis Description: Diarrhea, unspecified H.Pylori Antigen-Stool Negative Negative NA Performed By: [facility] [address] [place] [address] Career Orientation Teacher: Justyn Rowan MD, PhD CLIA Number: [id number] CDiff PCR Rfx C diff Toxin N AP/EPI 07606, [id number] Reviewed date:02/02/2024 04:41:06 PM Interpretation: Performing Lab: Notes/Report: Diagnosis Description: Diarrhea, unspecified CDiff PCR Reflex Negative A positi ve result by PCR indicates the presence of Clostridium difficile bacteria that is capable of producing toxin. It does not indicate toxin production; treatment should be based on clinical symptoms. Toxin testing will be performed on PCR positive results. Calprotectin Fecal 70543 Reviewed date:02/22/2024 03:36:01 PM Interpretation: Performing Lab: Notes/Report: Diagnosis Description: Diarrhea, unspecified Calprotectin Fecal 63 <=49 HI REFERENCE INTERVAL: Calprotectin, Fecal by Immunoassay Less than 50 ug/g.........Normal 50-120 ug/g...............Pablo rderline elevated, test should be re-evaluated in 4-6 weeks. 121 ug/g or greater.......Elevate d Performed By: [facility] [address] [place] [address] Career Orientation Teacher: Justyn Rowan MD, PhD CLIA Number: [id number] EGD, Upper GI Diagnostic-432 35 Reviewed date:02/12/2024 11:11:29 AM Interpretation: Performing Lab: Notes/Report: POCT-HCG NC--No CPT Reviewed date:02/11/2024 01:01:55 PM Interpretation: Performing Lab: Notes/Report: POCT- HCG NC Negative Control HCG Valid Reason For Referral No Information Medications Medication SIG (Take, Route, Frequency, Duration) Notes Start Date End Date Status Propranolol HCl 20 MG Tablet 1 tablet Or ally Twice a day Active Levocetirizine Dihydrochloride 5 MG Tablet 1 tablet in the evening Orally Once a day Active buPROPion HCl 75 MG Tablet 2 tablets Ora lly once a day Active Meloxicam 15 MG Tablet 1 tablet Orally O nce a day Active predniSONE 10 MG (21) Tablet Therapy Pack as directed Orally 03/09/2024 Active Ondansetron 4 MG Tablet Disintegrating 1 tablet on the tongue and allow to dissolve Orally Once a day; Duration: 30 day(s) 02/02/2024 Active ALPRAZolam 0.25 MG Tablet 1 tablet Orall y as needed Active Venlafaxine HCl 37.5 MG Tablet 1 tablet with food Orally Once a day Active Immunizations Vaccine Route Administration Date Status Comme nts Flucelvax Trivalent, Syringe 0.5 mL, PF Unknown 024 Refused Social History Tobacco Use: Social History Observation Description Date Details (start date - stop date) Never Smoker NA - NA Social History Depression Screening Social Info Question Answer Notes PHQ-9 Little interest or pleasure in doing thin gs Not at all Feeling down, depressed, or hopeless Not at all Trouble falling or staying asleep, or sleeping t oo much Not at all Feeling tired or having little energy Not at all Poor appetite or overeating Not at all Feeling bad about yourself, or that you are a failure, or have let yourself or your family down Not at all Trouble concentrating on thi ngs, such as reading the newspaper or watching television Not at all Moving or speaking so slowly that other people could have noticed. Or the opposite ? being so fidgety or restless that you have been moving around a lot more than usual Not at all Thoughts that you would be b yumiko off , or of hurting yourself in some way Not at all Total Score 0 Drug/Alcohol: Social Info Question Answer Notes AUDIT-C (Standard) Did you have a drink containing alcohol in the past year? No Points 0 Interpretation Negative Tobacco Use: Social Info Question Answer Notes Tobacco Control (Standard) Tobacco use: Nonsmoker Additional Details Category Social Info Options Details Drugs/Alcohol: Do you smoke marijuana? Ad mits, social Section Notes: 03/09/24 PHQ9 Problems Problem Type SNOMED Code ICD Code Onset Dates Problem Status W/U Status Risk Notes Problem Gastro-esophagea l reflux disease without esophagitis (023979959) Gastro-esophage al reflux disease without esophagitis (K21.9) Active confirmed Vital Signs Heart Rate 129 /min 03/09/2024 Temperature 98.1 degrees Fahrenheit 03/09/2024 Respiratory Rate 20 /min 03/09/2024 Height-cm 175.26 cm 03/09/2024 Oximetry 99 % 03/09/2024 Blood pressure diastolic 64 mm Hg 03/09/2024 Weight-kg 50.8 kg 03/09/2024 Height 69 in 03/09/2024 Blood pressure systolic 110 mm Hg 03/09/2024 Weight 112 lbs 03/09/2024 BMI 16.54 kg/m2 03/09/2024 Encounters Encounter Location Date Provider Diagnosis [facility] [address] [place] [address] 02/08/2024 Perry Baptiste [facility] [address] [place] [address] 02/02/2024 Fabi Lorenzana Intractable nausea a nd vomiting R11.2 ; Gastroesophageal reflux disease, unspecified whether esophagitis present K21.9 ; Unintentional weight loss R63.4 and Diarrhea, unspecified type R19.7 [facility] [address] [facility] [address] [place] [address] 03/09/2024 Farzaneh Nathan Acute gastroenteritis K52.9 ; Acute bronchitis J20.9 ; Depression screen Z13.31 ; Encounter for immunization Z23 and Vaccination not carried out because of parent refusal Z28.82 [facility] [address] [place] [address] 02/02/2024 Perry Baptiste [facility] [address] [place] [address] 02/22/2024 Perry Baptiste Assessments Encounter Date Diagnosis (ICD Code) Assessment Notes Treatment Notes Treatment Clinical Notes Section Notes 02/02/2024 Intractable nausea and vomiting (ICD-10 - R11.2) Patient presents with 3 month history multiple GI complaints including intractable nausea, vomiting, dry heaves, reflux, diarrhea, and unintentional weight loss. Previous diagnostics including laboratory investigation and diagnostic imaging have been nondiagnostic as to the etiology of symptoms. Symptoms did start around the same time of initiation of NuvaRing contraception. Consider side effect and differentials. I agree with consideration of alternative contraceptive method. Other differentials include gastroesophagitis, peptic ulcer disease, H. pylori infection, less likely inflammatory bowel disease, gastrointestinal malignancy, etc. Risk factors include age, anxiety, depression, meloxicam use. Recommends EGD for further evaluation of symptoms. EGD procedure, risks, benefits, potential complications, and potential interventions discussed. Questions answered to apparent satisfaction. Verbalizes understanding. Desires to proceed with the proposed plan. > Schedule EGD with Dr. Baptiste 02/08/2024. Further recommendations pending endoscopic findings.> Continue antiemetic use as needed> Continue daily empiric PPI > Avoid aspirin, ibuprofen, naproxen, and other nonsteroidal anti-inflammatory drugs. > Hold meloxicam until endoscopic evaluation. 02/02/2024 Gastroesophageal reflux disease, unspecified whether esophagitis present (ICD-10 - K21.9) Details, further evaluation, and treatment outlined #1. 03/09/2024 Acute gastroenteritis (ICD-10 - K52.9) Increase fluids, take medication as directed. RTC if no improvement with treatment. 03/09/2024 Acute bronchitis (ICD-10 - J20.9) 03/09/2024 Depression screen (ICD-10 - Z13.31) 02/02/2024 Unintentional weight loss (ICD-10 - R63.4) 02/02/2024 Diarrhea, unspecified type (ICD-10 - R19.7) Acute onset 3 months ago. Prior hospital records including ER visit with laboratory evaluation and diagnostic imaging reviewed and noted. Mild acidosis consistent with excessive GI losses noted. Elevated lactic acid noted with improvement with IV hydration. Electrolytes fairly and renal function within normal limits. No leukocytosis. CRP normal. CT of the abdomen and pelvis reviewed and noted. Personal interpretation: No acute intra-abdominal processes appreciated. No bowel contraceptive ring noted with thickened endometrial lining. No prior stool studies. No family history of inflammatory bowel disease.> Obtain stool studies (fecal calprotectin, culture, C. difficile, Giardia/Cryptospori dium, H. pylori). Will call with results and if needed treatment recommendations.> Discussed dietary modifications. 03/09/2024 Encounter for immunization (ICD-10 - Z23) 03/09/2024 Vaccination not carried out because of parent refusal (ICD-10 - Z28.82) Plan Of Treatment No Information Insurance Providers Payer Name Payer Address Payer Phone Subscriber Number Group Number Insured Name Patient Relationship to Insured Coverage Start Date Coverage End Date [facility] Commercial [address] [address] [place] [address] [id number] ALLISON Anna Self - patient is the insured [facility] Medicaid Replacement [address] [place] [phone] [id number] Anna MORENO Self - patient is the insured Medical (General) History Medical History History ICD Code anxiety Depression weight loss Surgical History Surgery Date(Month/Year) wisdom teeth extraction
--- NOTE | 2024-10-05 08:38 | ED_ITS ---
HPI - Nausea/Vomiting/Diarrhea 2 General: Chief complaint: Nausea/Vomiting/Diarrhea Stated complaint: n/v/d/f, shakes, weakness Time Seen by Provider: 10/05/24 08:19 Source: patient Mode of arrival: ambulatory Limitations: no limitations History of Present Illness: 24-year-old female states she has had a history of vomiting with her menstruation in the past. States she has also had severe menstrual cramps and pain with her menstruation in the past. She states she started her period on the weekend and has been having cramping along with severe nausea and vomiting. She states she has had multiple episodes of vomiting denies any worse improving factors also has a history anxiety and states she feels like she is having anxiety attacks Associated nausea: Yes Associated symtoms: Reports anxiety and nausea; Denies chest pain, dysuria or headache(s) Related Data Home Medications ?Medication ?Instructions ?Recorded ?Confirmed fluoxetine 20 mg capsule 20 mg PO DAILY 05/13/2409/20 propranolol 20 mg tablet 20 mg PO BID 05/13/24 alprazolam 0.25 mg tablet 0.25 mg PO BID PRN Anxiety 0 10/05/24 10/05/24 bupropion HCl 75 mg tablet 75 mg PO QAM 10/05/2410/05 cetirizine 10 mg tablet 10 mg PO DAILY 10/05/2409/20 Previous Rx's ?Medication ?Instructions ?Recorded meloxicam 15 mg tablet 15 mg PO DAILY #30 tabs 10/0 11/13 venlafaxine 75 mg capsule,extended 75 mg PO DAILY #30 caps 03/02/24 release 24 hr (Effexor XR) tramadol 50 mg tablet 50 mg PO Q6H PRN pain #14 ta bs 05/13/24 ibuprofen 800 mg tablet 800 mg PO TID dysmenorrhea # 90 tabs 05/30/24 metoclopramide HCl 10 mg tablet 10 mg PO Q6H PRN nause a and 10/05/24 (Reglan) vomiting #20 tabs Allergies Allergy/AdvReac Type Severity Reaction Status Date / Time No Known Allergies Allergy Verified 07/20/24 09:56 Review of Systems 2 Const: Denies: fever(s), chills, body aches or change in appetite ENMT: Denies: throat pain or dental pain Card: Denies: chest pain Resp: Denies: dyspnea GI: Reports: abdominal pain, nausea and vomiting; Denies: diarrhea : Denies: dysuria Musc: Denies: neck pain or back pain Skin/Breast: Denies: rash Neuro: Denies: headache(s) Psych: Reports: anxiety PFSH ED 2 PFSH: Medical History Depression Anxiety Environmental and seasonal allergies Healthy adolescent Surgical History No history of previous surgery Family History Grandfather Diabetes Stroke Denies family history of CAD (coronary artery disease) Dementia Chronic kidney disease (CKD) Anesthesia complication Cancer Hypertension Social History Smoking and tobacco/nicotine status: unknown if used tobacco/nicotine Second hand smoke exposure: No Alcohol intake: never Substance/Drug Use: never Adopted: No Caregiver/support person: No Lives independently: Yes Household members: family Housing: House Marital status: Single Number of children: 0 Highest education level completed: High School Graduate service: No Current occupational status: unemployed and student Pets and animals: Yes Do you think of yourself as: Straight/Heterosexual Current gender identity: Female Female Reproductive History: Date of last menstrual period: 10/05/24 Physical Exam 2 Const: COMMON NORMALS: no acute distress, patient oriented x3 and healthy appearing HENMT: COMMON NORMALS: normocephalic and atraumatic HEAD & SCALP: n ormocephalic and atraumatic Eye: COMMON NORMALS: Equal, round and reactive pupils present and EOMs intact bilaterally PUPIL: Yes Equal, round and reactive pupils present Neck/C-Spine: COMMON NORMALS: full ROM and supple Chest: COMMONS NORMALS: normal inspection of the chest and normal palpation of entire chest wall Resp: COMMON NORMALS: normal respiratory effort, No retractions, No use of accessory muscles and clear to auscultation bilaterally AUSCULTATION: clear to auscultation bilaterally Cardio: COMMON NORMALS: regular rate, regular rhythm and No murmurs present (Cardio) RATE: regular rate RHYTHM: regular rhythm GI: COMMON NORMALS: Normal to inspection, nondistended, normoactive bowel sounds present, Soft to palpation, non-tender and no masses PALPATION: Yes Soft to palpation Extremity: COMMON NORMALS: normal to inspection and full ROM Neuro: COMMON NORMALS: patient oriented x3, moves all extremities and no focal motor deficits Psych: COMMON NORMALS: mental status grossly normal, Normal thought process present and cooperative THOUGHT PROCESS: Normal thought process present Skin: COMMON NORMALS: no rashes or lesions noted and no wounds GENERAL SKIN EXAM: no rashes or lesions noted Course 2 Vital Signs: Vital signs: Vital Signs Temperature 97.7 F 10/05/24 08:20 Pulse Rate 77 10/05/24 10:43 Respiratory Rate 16 10/05/24 10:43 Blood Pressure 127/75 10/05/24 10:43 Pulse Oximetry 100 10/05/24 10:43 Oxygen Delivery Me thod Room Air 10/05/24 08:20 MDM - Nausea/Vomiting/Diarrhea Medical Decision Making Patient presents here with vomiting along with abdominal pain blood work here is normal she feels improved after IV meds likely cyclical vomiting will prescribe her Reglan she is to follow-up with PCP and return if worsening. Medical Records I reviewed the patient's medical records. Lab Data I reviewed the patient's lab results. 10/05/24 08:49 10/05/24 08:49 Radiology Impressions Chest X-Ray 10/05/24 08:40 IMPRESSION: 1. Negative for acute infiltrate 2. Lungs appear hyperinflated, is there history of asthma? Laboratory Results WBC 8.15 10^3/uL (3.29-11.43) 10/05/24 08:49 Corrected WBC Cancelled 10/05/24 08:24 RBC 3.58 10^6/uL (3.85-5.65) L 10/05/24 08:49 Hgb 10.90 g/dL (11.27-16.99) L 10/05/24 08:49 Hct 32.6 % (36-47) L 10/05/24 08:49 MCV 91.1 fl (85-98) 10/05/24 08:49 MCH 30.4 pg (27-33) 10/05/24 08:49 MCHC 33.4 g/dL (30-55) 10/05/24 08:49 RDW 13.3 % (12.1-15.1) 10/05/24 08:49 Plt Count 226 10^3/cmm (157-399) 10/05/24 08:49 MPV 10.4 fL (7.4-10.4) 10/05/24 08:49 Gran % Cancelled 10/05/24 08:24 Neut % (Auto) 75.1 % 10/05/24 08:49 Lymph % (Auto) 17.9 % 10/05/24 08:49 Mora % (Auto) 5.6 % 10/05/24 08:49 Eos % (Auto) 0.4 % 10/05/24 08:49 Baso % (Auto) 0.6 % 10/05/24 08:49 Neut # (Auto) 6.12 10^3/uL (1.8-7.7) 10/05/24 08:49 Lymph # (Auto) 1.5 10^3/uL (0.8-4.8) 10/05/24 08:49 Mora # (Auto) 0.5 10^3/uL (0.2-0.9) 10/05/24 08:49 Eos # (Auto) 0.0 10^3/uL (0.0-0.8) 10/05/24 08:49 Baso # (Auto) 0.1 10^3/uL (0.0-0.1) 10/05/24 08:49 Absolute Gran (auto) Cancelled 10/05/24 08:24 Nucleated RBC % (auto) 0 % 10/05/24 08:49 Nucleated RBCs # 0.0 /100WBC 10/05/24 08:49 Sodium 142 mmol/L (136-145) 10/05/24 08:49 Potassium 3.2 mmol/L (3.5-5.1) L 10/05/24 08:49 Chloride 107 mmol/L (98-107) 10/05/24 08:49 Carbon Dioxide 17 mmol/L (22-29) L 10/05/24 08:49 Anion Gap 21.2 (5-19) H 10/05/24 08:49 BUN 10 mg/dL (6-20) 10/05/24 08:49 Creatinine 0.6 mg/dL (0.5-0.9) 10/05/24 08:49 GFR Calculation 125.0 mL/min (90-130) 10/05/24 08:49 Glucose 109 mg/dL (65-115) 10/05/24 08:49 Calculated Osmolality 294 mOsm/kg (285-295) 10/05/24 08:49 Calcium 8.4 mg/dL (8.5-10.5) L 10/05/24 08:49 Total Bilirubin 0.5 mg/dL (0.15-1.2) 10/05/24 08:49 AST 19 U/L (0-32) 10/05/24 08:49 ALT 14 U/L (0-33) 10/05/24 08:49 Alkaline Phosphatase 49 U/L (35-105) 10/05/24 08:49 Total Protein 6.2 g/dL (6.6-8.7) L 10/05/24 08:49 Albumin 4.1 g/dL (3.5-5.2) 10/05/24 08:49 Globulin 2.1 g/dL (1.3-4.6) 10/05/24 08:49 Lipase 9 U/L (13-60) L 10/05/24 08:49 TSH 0.62 uIU/mL (0.27-4.20) 10/05/24 08:49 HCG, Qual Negative (Negative) 10/05/24 08:49 Urine Color Yellow (Yellow) 10/05/24 09:15 Urine Appearance Clear (CLEAR) 10/05/24 09:15 Urine pH 5.5 (5-7) 10/05/24 09:15 Ur Specific [place] 1.024 (1.005-1.030) 10/05/24 09:15 Urine Protein 1+ (Negative) A 10/05/24 09:15 Urine Glucose (UA) Negative (Normal) 10/05/24 09:15 Urine Ketones 4+ (Negative) 10/05/24 09:15 Urine Blood Negative (Negative) 10/05/24 09:15 Urine Nitrate Negative (Negative) 10/05/24 09:15 Urine Bilirubin Negative (Negative) 10/05/24 09:15 Urine Urobilinogen 1.0 mg/dL (Negative) 10/05/24 09:15 Ur Leukocyte Esterase Negative (Negative) 10/05/24 09:15 Urine RBC 0-2 /hpf (0-2) 10/05/24 09:15 Urine WBC 0-5 /hpf (0-5) 10/05/24 09:15 Ur Squamous Epith Cells 6-10 /hpf (0-5) 10/05/24 09:15 Amorphous Sediment Not Reportable 10/05/24 09:15 Urine Bacteria None seen /hpf (NONE) 10/05/24 09:15 Hyaline Casts 1.65 /lpf 10/05/24 09:15 All radiology interpretation(s) finalized by discharge Discharge Plan Discharge Patient Disposition: Home Clinical Impression: Vomiting Condition: Stable Prescriptions: New metoclopramide HCl [Reglan] 10 mg tablet 10 mg PO Q6H PRN (Reason: nausea and vomiting) Qty: 20 0RF No Action meloxicam 15 mg tablet 15 mg PO DAILY Qty: 30 11RF Rx Instructions: take with food venlafaxine [Effexor XR] 75 mg capsule,extended release 24hr 75 mg PO DAILY Qty: 30 11RF ibuprofen 800 mg tablet 800 mg PO TID Qty: 90 3RF propranolol 20 mg tablet 20 mg PO BID fluoxetine 20 mg capsule 20 mg PO DAILY tramadol 50 mg tablet 50 mg PO Q6H PRN (Reason: pain) Qty: 14 0RF cetirizine 10 mg tablet 10 mg PO DAILY alprazolam 0.25 mg tablet 0.25 mg PO BID PRN (Reason: Anxiety) bupropion HCl 75 mg tablet 75 mg PO QAM Discharge Orders: Discharge ED (Routine); Ordered 10/05/24 Ordered By: Abbie Payne Discharge Diet: Advance as tolerated Discharge Activity: Resume usual activity Patient Instructions: Acute Nausea and Vomiting (ED) Stand Alone Forms: Work/School Release Print Language: Bahamian Coding Level of Care Code ED Nursing Information Systems Coordinator for Bessie Yee
--- NOTE | 2024-10-05 08:40 | XRR_ITS ---
PROCEDURE INFORMATION: Exam: XR Chest Exam date and time: 10/05/2024 8:47 AM Age: 24 years old Clinical indication: Shortness of breath; Additional info: SOB TECHNIQUE: Imaging protocol: Radiologic exam of the chest. Views: 1 view. COMPARISON: CR XR chest 1V portable [id number] 01/30/2024 2:00 PM FINDINGS: Lungs: Patient is lungs appear hyperinflated on this single PA view, is there history of asthma? There is no pneumothorax or pleural effusion. Pleural spaces: There is no pneumothorax or pleural effusion Heart/Mediastinum: The heart size is within normal limits. Bones/joints: Unremarkable. XR/XR chest 1V portable [id number] IMPRESSION: 1. Negative for acute infiltrate 2. Lungs appear hyperinflated, is there history of asthma?
[2024-10-05] MEDS: metoclopramide 5 mg/mL SDV 2 mL 10 MG IVP (08:42)
[2024-10-05] MEDS: diphenhydrAMINE 50 mg/mL SDV 1mL IVP (08:42)
[2024-10-05] MEDS: LORazepam 1 MG/0.5 ML injection 0.5 MG IVP (08:42)
[2024-10-05 08:55] LABS: Hematocrit 32.6 % (36-47); Hemoglobin 10.90 g/dL (11.27-16.99); Mean Corpuscular HGB Conc 33.4 g/dL (30-55); Mean Corpuscular Hemoglobin 30.4 pg (27-33); Mean Corpuscular Volume 91.1 fl (85-98); Nucleated Red Blood Cells % 0 %; Platelet Count 226 10^3/cmm (157-399); Red Blood Count 3.58 10^6/uL (3.85-5.65); White Blood Count 8.15 10^3/uL (3.29-11.43)
[2024-10-05 09:09] LABS: HCG, Serum Qual Negative (Negative)
[2024-10-05 09:14] LABS: Alanine Aminotransferase 14 U/L (0-33); Albumin Level 4.1 g/dL (3.5-5.2); Alkaline Phosphatase 49 U/L (35-105); Aspartate Amino Transferase 19 U/L (0-32); Blood Urea Nitrogen 10 mg/dL (6-20); Calcium 8.4 mg/dL (8.5-10.5); Carbon Dioxide 17 mmol/L (22-29); Chloride 107 mmol/L (98-107); Creatinine Clr Calc Pharmacy 115.8442; Globulin 2.1 g/dL (1.3-4.6); Glucose 109 mg/dL (65-115); Lipase 9 U/L (13-60); Osmolality Calculated 294 mOsm/kg (285-295); Sodium 142 mmol/L (136-145); Total Protein 6.2 g/dL (6.6-8.7)
[2024-10-05 09:18] LABS: Anion Gap 21.2 (5-19); Potassium 3.2 mmol/L (3.5-5.1)
[2024-10-05 09:30] LABS: Glucose Urine UA Negative (Normal); Nitrate Urine Negative (Negative); Specific Gravity, Urine 1.024 (1.005-1.030)
[2024-10-05 09:35] LABS: Add Urine Microscopic? YES
--- NOTE | 2024-10-05 09:50 | PC.PHAR ---
Pt stated she has no idea what the names of her medications are and does not know when she last took them, except for the Ibuprofen 800mg she took yesterday. Pt also is not using the EluRyng anymore she has a copper IUD. Phoned the pharmacies and verified last fill and day supply. Added in pharmacy notes along with the pharmacy they were filled at. 10/05/24
[2024-10-05] MEDS: haloperidol inj 5 mg/mL INJ 1 mL IVP (09:51)
[2024-10-05 10:23] LABS: Thyroid Stimulating Hormone 0.62 uIU/mL (0.27-4.20)
== END 2024-10-05 10:43 | disposition home or self-care (01) ==
PROVIDERS: Emergency Provider Emergency Medicine
DX: R11.10 Vomiting, unspecified (principal)
CPT/HCPCS: 36415; 71045; 80053; 81001; 83690; 84443; 84703; 85025; 96361; 96374; 96375; 99284; J1200; J1630; J2060; J2765; J7030

== ENCOUNTER 2024-10-08 11:55 | Emergency (ER) | payer OTHER, MEDICAID, SELFPAY ==
--- OUTSIDE RECORDS SUMMARY | 2023-03-03 10:41 | XMS_ITS | Continuity of Care Document ---
Author Organization [facility] Address [id number] [address] Phone Care Team Providers Care Industrial Sales Representative Name Role Phone Tolu Gottlieb DDS Unavailable Unavailabl e Allergies, Adverse Reactions, Alerts Substance Reaction Status Criticality No Known Allergies Active No Inform ation Medications Medication Instructions Dosage Effective Dates (start - stop) Status Comments hydrocodone 5 mg-acetaminophen 325 mg tablet take 1 tablet by oral route every 6 hours as needed for pain as needed 1.00 tablet - Active chlorhexidine gluconate 0.12 % mouthwash place 15 milliliter by mouth (after meals), swish one minute then spit out as needed - Active Start on 3rd day after surgery, use salt/water first 3 days. 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 bupropion HCl 75 mg tablet take 1 tablet by oral route 3 times every day 75 MG - Active fluoxetine 20 mg capsule take 1 capsule by oral route every day in the morning 20 MG - Active levocetirizine 5 mg tablet take 1 tablet by oral route every day in the evening 5 MG - Active propranolol 10 mg tablet take 2 tablet by oral route 3 times every day 20 MG - Active Procedures Procedure Date EDR Approval Note URINE TEST Removal Of Impacted Tooth Partially Bony Removal Of Impacted Tooth Partially Bony Removal Of Impacted Tooth Partially Bony Removal Of Impacted Tooth Partially Bony Deep Sedation/general Anesthesia, First 15 Minutes Deep Sedation/general Anesthesia, 15 Min Limited Oral Evaluation Problem Focused EDR Approval Note Advance Directives Directive Yes / No Effective Date File Name No Information Encounters Encounter Description Practice Location Reason(s) For Visit Diagnoses Date Provider Providers Copied on Encounter [facility], [id number], [id number], [place] tel:[phone] [facility] No Information 3 Chery Motley. [address] [place] [address], [address], [place]. tel:[phone] [facility], [id number], [id number], [place] tel:[phone] [facility] Encounter for dental exam and cleaning w/o abnormal findingsEncounter for test, result unknown 3 Chery Motley. [address] [place] [address], [address], [place]. tel:[phone] Referring Provider: Tolu Gottlieb, [address] [place] [address], [address]. tel:[phone] [facility], [id number], [id number], [place] tel:[phone] [facility] Encounter for dental exam and cleaning w/o abnormal findings 3 Chery Motley. [address] [place] [address], [address], . tel:[phone] Referring Provider: Tolu Gottlieb, [address] [place] [address], [facility]. tel:[phone] [facility], [id number], [id number], [place] tel:[phone] [facility] No Information 3 Chery Motley. [address] [place] [address], [address], . tel:[phone] [facility], [id number], [id number], [place] tel:[phone] [facility] Encounter for dental exam and cleaning w/o abnormal findings 3 Chery Motley. [address] [place] [address], [address], . tel:[phone] Referring Provider: Tolu Gottlieb, [address] [place] [address], [facility]. tel:[phone] Family History Family Member Type Diagnosis Age At Onset No Information Payers Payer name Insurance type Covered alliance party ID Matthew estes(s) D [employer] CI [id number] Social History Type Description Quantity Date Captured Comments Sex Female Smoking Status No Information Gender Identity Female Chief Complaint And Reason For Visit No Information Reason For Referral Reason For Referral No Information History Of Present Illness Encounter Date Complaint History Of Prese nt Illness No Information Functional Status Date Functional Assessmen t No Information Instructions Date Instruction Additional Infor mation No Information Assessments Type Assessment Date No Information Patient Care Teams Name Effective Dates (start - stop) Status Members No Information
--- OUTSIDE RECORDS SUMMARY | 2024-02-08 07:30 | XMS_ITS ---
Author Organization [facility] Address [address] [place] [address] Care Team Providers Care Trade Union Secretary Name Role Phone Saran Salazar Primary Care Provider Farzaneh Craig Unavailable [phone] Perry Baptiste Unavailable [phone] REASON FOR VISIT N/V, gerd, wt loss Encounters Encounter Location Date Provider Diagnosis [facility] [address] [place] [phone] 02/08/2024 Perry Baptiste Plan Of Treatment No Information Progress Notes * Anna MORENO EDOB:2000 (24 yo F)Acc No.[id number]:02/08/2024 History and Physical Patient: Anna GORDON Provider: Robert Baptiste MD :2000 A ge:23 Y S ex:Female Date:02/08/2024 Address:[address] [place] [phone] Pcp:Saran Salazar Check Out:09:58 AM [employer] Subjective: * Chief Complaints: * N /V, gerd, wt loss Billing Information: * Procedure Codes: * Electronic signature of Chalino Baptiste MD on 10/08/2024 at 12:01 PM CDT Sign off status: Pending * Provider: Robert Baptiste MD Date: 04/09/2023 Generated for Marizai ishmael/Tyrell/eTransmitting on: 10/08/2024 12:01 PM CDT
--- OUTSIDE RECORDS SUMMARY | 2024-10-08 12:01 | XMS_ITS | Patient Health Record ---
Author Organization [facility] Address [address] [place] [address] Care Team Providers Care Records Assistant Name Role Phone Saran Salazar Primary Care Provider UnavailFarzaneh Ramos Unavailable [phone] Emile Perry Unavailable [phone] Fabi Lorenzana Unavailable [phone] Allergies No Known Allergies Results Component Value Reference Range Flag [place] A [address] Reviewed date:03/09/2024 09:44:12 AM Interpretation: Performing Lab: Notes/Report: Strep Screen A negative Culture Stool 68720, 19517, 79298, 12586, 68333 Reviewed date:02/22/2024 03:35:07 PM Interpretation: Performing Lab: Notes/Report: Culture Stool Patien ANNA MORENO Culture Stool t: Culture Stool Culture Stool Accessio [id number] Culture Stool n: Culture Stool Microbiology Culture Stool PROCEDURE: Culture Stool [O1] Culture Stool SOURCE: Stool BODY SITE: Culture Stool COLLECTED DATE/TIME: 02/02/2024 15:00 EDUCATIONAL THERAPY TEACHER RECEIVED DATE/TIME: 02/02/2024 15:13 EDUCATIONAL THERAPY TEACHER Culture Stool START DATE/TIME: 02/02/2024 15:13 EDUCATIONAL THERAPY TEACHER FREE TEXT SOURCE: Culture Stool FINAL REPORT Culture Stool Final Report [] Culture Stool Verified Date/Time: 02/06/2024 09:26 EDUCATIONAL THERAPY TEACHER Culture Stool No Salmonella isolated Culture Stool No Shigella isolated Culture Stool No Yersinia isolated Culture Stool No Vibrio isolated Culture Stool No Campylobacter isolated Culture Stool No Aeromonas isolated Culture Stool No Plesiomonas isolated Culture Stool No Klebsiella oxytoc a isolated Culture Stool Order Comments Culture Stool O1: Culture Stool (Culture Stool 16337, 54935, 96977, 66567, 97869) Culture Stool Diagnosis Descriptio n: Diarrhea, unspecified Giardia/Cryptosporidium Scre en 56685, 98248 Reviewed date:02/03/2024 09:23:32 AM Interpretation: Performing Lab: Notes/Report: Giardia/Cryptosporidi um Screen ANNA Reid Giardia/Cryptosporidi um Screen t: Giardia/Cryptosporidi um Screen Giardia/Cryptosporidi um Screen Accessio [id number] Giardia/Cryptosporidi um Screen n: Giardia/Cryptosporidi um Screen Microbiology Giardia/Cryptosporidi um Screen PROCEDURE: Giardia/Cryptosporidiu m Giardia/Cryptosporidi um Screen Screen [O1] Giardia/Cryptosporidi um Screen SOURCE: Stool BODY SITE: Giardia/Cryptosporidi um Screen COLLECTED DATE/TIME: 02/02/2024 15:00 EDUCATIONAL THERAPY TEACHER RECEIVED DATE/TIME: 02/02/2024 15:13 EDUCATIONAL THERAPY TEACHER Giardia/Cryptosporidi um Screen START DATE/TIME: 02/02/2024 15:13 EDUCATIONAL THERAPY TEACHER FREE TEXT SOURCE: Giardia/Cryptosporidi um Screen FINAL REPORT Giardia/Cryptosporidi um Screen Final Report [] Giardia/Cryptosporidi um Screen Verified Date/Time: 02/02/2024 16:06 EDUCATIONAL THERAPY TEACHER Giardia/Cryptosporidi um Screen Negative for Giardia/Cryptosporidiu m Antigen Giardia/Cryptosporidi um Screen Order Comments Giardia/Cryptosporidi um Screen O1: Giardia/Cryptosporidiu m Screen (Giardia/Cryptosporidi um Screen 22375, 68767) Giardia/Cryptosporidi um Screen Diagnosis Description: Diarrhea, unspecified H.Pylori Antigen-Stool 96251 Reviewed date:02/22/2024 03:40:21 PM Interpretation: Performing Lab: Notes/Report: Diagnosis Description: Diarrhea, unspecified H.Pylori Antigen-Stool Negative Negative NA Performed By: [facility] [address] [place] [address] Care Transitions Manager: Justyn Rowan MD, PhD CLIA Number: [id number] CDiff PCR Rfx C diff Toxin N AP/EPI 85162, 90656 Reviewed date:02/02/2024 04:41:06 PM Interpretation: Performing Lab: Notes/Report: Diagnosis Description: Diarrhea, unspecified CDiff PCR Reflex Negative A positi ve result by PCR indicates the presence of Clostridium difficile bacteria that is capable of producing toxin. It does not indicate toxin production; treatment should be based on clinical symptoms. Toxin testing will be performed on PCR positive results. Calprotectin Fecal 61647 Reviewed date:02/22/2024 03:36:01 PM Interpretation: Performing Lab: Notes/Report: Diagnosis Description: Diarrhea, unspecified Calprotectin Fecal 63 <=49 HI REFERENCE INTERVAL: Calprotectin, Fecal by Immunoassay Less than 50 ug/g.........Normal 50-120 ug/g...............Pablo rderline elevated, test should be re-evaluated in 4-6 weeks. 121 ug/g or greater.......Elevate d Performed By: [facility] [address] [place] [address] Care Transitions Manager: Justyn Rowan MD, PhD CLIA Number: [id number] EGD, Upper GI Diagnostic-432 35 Reviewed date:02/12/2024 [...] Problem Gastro-esophagea l reflux disease without esophagitis ([id number]) Gastro-esophage al reflux disease without esophagitis (K21.9) [...] 03/09/2024 Encounters Encounter Location Date Provider Diagnosis [facility] [address] [place] [address] 02/02/2024 Perry Baptiste [facility] [address] [place] [address] 02/22/2024 Perry Baptiste [facility] [address] [place] [address] 02/02/2024 Fabi Acmanjulain Intractable nausea a nd vomiting R11.2 ; Gastroesophageal reflux disease, unspecified whether esophagitis present K21.9 ; Unintentional weight loss R63.4 and Diarrhea, unspecified type R19.7 [facility] [address] [place] [address] 02/08/2024 Perry Baptiste [facility] [address] [address] 03/09/2024 Farzaneh Nathan Acute gastroenteritis K52.9 ; Acute bronchitis J20.9 ; Depression screen Z13.31 ; Encounter for immunization Z23 and Vaccination not carried out because of parent refusal Z28.82 Assessments Encounter Date Diagnosis (ICD Code) Assessment [...] Insured Coverage Start Date Coverage End Date [facility] Commercial [address] [address] [place] [address] [id number] ALLISON Anna Self - patient is the insured [facility] Medicaid Replacement [address] [place] [address] [id number] Anna MORENO Self - patient is the insured Medical (General) History Medical History History ICD Code anxiety Depression weight loss Surgical History Surgery Date(Month/Year) wisdom teeth extraction
[2024-10-08 12:02] VITALS: BP 114/72; PULSE 86; RESP 26; TEMP 36.6; O2SAT 100; BMI 16.2
--- NOTE | 2024-10-08 12:17 | ED_ITS ---
HPI - Nausea/Vomiting/Diarrhea 2 General: Chief complaint: Nausea/Vomiting/Diarrhea Stated complaint: n/v Time Seen by Provider: 10/08/24 12:05 History of Present Illness: 24-year-old female presents emergency ro om with persistent nausea and vomiting. No hematemesis or coffee-ground emesis. She was seen 3 days ago with similar symptoms. Greene to be cyclic vomiting. She was discharged home after IV medications and fluids. She states she is frequently gets this associated with her menstrual cycle. Associated symtoms: Denies chest pain or dysuria Related Data Home Medications ?Medication ?Instructions ?Recorded ?Confirmed fluoxetine 20 mg capsule 20 mg PO DAILY 05/13/2409/20 propranolol 20 mg tablet 20 mg PO BID 05/13/24 alprazolam 0.25 mg tablet 0.25 mg PO BID PRN Anxiety 0 10/05/24 10/05/24 bupropion HCl 75 mg tablet 75 mg PO QAM 10/05/2410/05 cetirizine 10 mg tablet 10 mg PO DAILY 10/05/2409/20 Previous Rx's ?Medication ?Instructions ?Recorded meloxicam 15 mg tablet 15 mg PO DAILY #30 tabs 10/0 11/13 venlafaxine 75 mg capsule,extended 75 mg PO DAILY #30 caps 03/02/24 release 24 hr (Effexor XR) tramadol 50 mg tablet 50 mg PO Q6H PRN pain #14 ta bs 05/13/24 ibuprofen 800 mg tablet 800 mg PO TID dysmenorrhea # 90 tabs 05/30/24 metoclopramide HCl 10 mg tablet 10 mg PO Q6H PRN nause a and 10/05/24 (Reglan) vomiting #20 tabs lorazepam 2 mg tablet (Ativan) 2 mg buccal Q6H PRN jaclyn sea and 10/08/24 vomiting #14 tabs olanzapine 10 mg disintegrating 10 mg PO Q6H PRN nause a and 10/08/24 tablet vomiting #14 tabs Allergies Allergy/AdvReac Type Severity Reaction Status Date / Time No Known Allergies Allergy Verified 10/08/24 12:07 Review of Systems 2 Const: Denies: fever(s) or chills Card: Denies: chest pain Resp: Denies: dyspnea GI: Denies: abdominal pain : Denies: dysuria, urinary frequency or urinary urgency Musc: Denies: neck pain or back pain Skin/Breast: Denies: rash PFSH ED 2 PFSH: Medical History Depression Anxiety Environmental and seasonal allergies Healthy adolescent Surgical History No history of previous surgery Family History Grandfather Diabetes Stroke Denies family history of CAD (coronary artery disease) Dementia Chronic kidney disease (CKD) Anesthesia complication Cancer Hypertension Social History Smoking and tobacco/nicotine status: unknown if used tobacco/nicotine Second hand smoke exposure: No Alcohol intake: never Substance/Drug Use: never Adopted: No Caregiver/support person: No Lives independently: Yes Household members: family Housing: House Marital status: Single Number of children: 0 Highest education level completed: High School Graduate service: No Current occupational status: unemployed and student Pets and animals: Yes Do you think of yourself as: Straight/Heterosexual Current gender identity: Female Physical Exam 2 Const: COMMON NORMALS: no acute distress GENERAL APPEARANCE: cooperative and comfortable ORIENTATION/CONSCIOUSNESS: Yes awake, Yes oriented to person, Yes oriented to place and Yes oriented to time HENMT: COMMON NORMALS: normocephalic, atraumatic and hearing grossly normal bilaterally HEAD & SCALP: normocephalic and atraumatic Resp: COMMON NORMALS: normal respiratory effort, No retractions, No use of accessory muscles and clear to auscultation bilaterally AUSCULTATION: clear to auscultation bilaterally Cardio: COMMON NORMALS: regular rate, regular rhythm and No murmurs present (Cardio) RATE: regular rate RHYTHM: regular rhythm GI: COMMON NORMALS: Soft to palpation and No hepatosplenomegaly present A USCULTATION: Yes normoactive bowel sounds PALPATION: Yes Soft to palpation, No Tenderness to palpation present (GI), No Guarding due to palpation present (GI) and Yes No hepatosplenomegaly present Extremity: COMMON NORMALS: normal to inspection, capillary refill normal, no clubbing, cyanosis or edema, no calf tenderness and no pedal edema Neuro: SENSORIUM/ORIENTATION: Yes oriented to person, Yes oriented to place and Yes oriented to time Skin: COMMON NORMALS: no rashes or lesions noted GENERAL SKIN EXAM: no rashes or lesions noted Course 2 Vital Signs: Vital signs: Vital Signs Temperature 97.9 F 10/08/24 12:02 Pulse Rate 86 10/08/24 12:02 Respiratory Rate 26 H 10/08/24 12:02 Blood Pressure 114/72 10/08/24 12:02 Pulse Oximetry 100 10/08/24 12:02 Oxygen Delivery Me thod Room Air 10/08/24 12:02 MDM - Nausea/Vomiting/Diarrhea Medical Decision Making Patient previously had extensive workup including GI workup at [place] with EGD and colonoscopy no significant finding. No clinically significant labs today. She did have good resolution of her nausea and vomiting with the Haldol and Ativan. I did discuss her I think marijuana is still a contributor to her that she does admit to using vape pen daily she is adamant that this has nothing to do with consider that is a possibility. This point other than treating her symptoms at home not there is much more that can be done for her recommended to her family that they consider going back to GI. Medical Records I reviewed the patient's medical records. Lab Data I reviewed the patient's lab results. 10/08/24 12:30 10/08/24 12:30 Laboratory Results WBC 6.83 10^3/uL (3.29-11.43) 10/08/24 12:30 RBC 4.50 10^6/uL (3.85-5.65) 10/08/24 12:30 Hgb 13.60 g/dL (11.27-16.99) 10/08/24 12:30 Hct 40.0 % (36-47) 10/08/24 12:30 MCV 88.9 fl (85-98) 10/08/24 12:30 MCH 30.2 pg (27-33) 10/08/24 12:30 MCHC 34.0 g/dL (30-55) 10/08/24 12:30 RDW 13.4 % (12.1-15.1) 10/08/24 12:30 Plt Count 275 10^3/cmm (157-399) 10/08/24 12:30 MPV 10.5 fL (7.4-10.4) H 10/08/24 12:30 Neut % (Auto) 51.3 % 10/08/24 12:30 Lymph % (Auto) 40.7 % 10/08/24 12:30 [place] % (Auto) 6.0 % 10/08/24 12:30 Eos % (Auto) 1.3 % 10/08/24 12:30 Baso % (Auto) 0.6 % 10/08/24 12:30 Neut # (Auto) 3.50 10^3/uL (1.8-7.7) 10/08/24 12:30 Lymph # (Auto) 2.8 10^3/uL (0.8-4.8) 10/08/24 12:30 [place] # (Auto) 0.4 10^3/uL (0.2-0.9) 10/08/24 12:30 Eos # (Auto) 0.1 10^3/uL (0.0-0.8) 10/08/24 12:30 Baso # (Auto) 0.0 10^3/uL (0.0-0.1) 10/08/24 12:30 Nucleated RBC % (auto) 0 % 10/08/24 12: Nucleated RBCs # 0.0 /100WBC 10/08/24 12:30 Sodium 142 mmol/L (136-145) 10/08/24 12:30 Potassium 3.4 mmol/L (3.5-5.1) L 10/08/24 12:30 Chloride 103 mmol/L (98-107) 10/08/24 12:30 Carbon Dioxide 22 mmol/L (22-29) 10/08/24 12:30 Anion Gap 20.4 (5-19) H 10/08/24 12:30 BUN 7 mg/dL (6-20) 10/08/24 12:30 Creatinine 0.7 mg/dL (0.5-0.9) 10/08/24 12:30 GFR Calculation 104.6 mL/min (90-130) 10/08/24 12:30 Glucose 124 mg/dL (65-115) H 10/08/24 12:30 Calculated Osmolality 293 mOsm/kg (285-295) 10/08/24 12:30 Calcium 9.8 mg/dL (8.5-10.5) 10/08/24 12:30 Total Bilirubin 0.3 mg/dL (0.15-1.2) 10/08/24 12:30 AST 16 U/L (0-32) 10/08/24 12:30 ALT 16 U/L (0-33) 10/08/24 12:30 Alkaline Phosphatase 49 U/L (35-105) 10/08/24 12:30 Total Protein 7.1 g/dL (6.6-8.7) 10/08/24 12:30 Albumin 4.6 g/dL (3.5-5.2) 10/08/24 12:30 Globulin 2.5 g/dL (1.3-4.6) 10/08/24 12:30 Lipase 20 U/L (13-60) 10/08/24 12:30 Urine Color Yellow (Yellow) 10/08/24 12:35 Urine Appearance Cloudy (CLEAR) A 10/08/24 12:35 Urine pH 8.5 (5-7) A 10/08/24 12:35 Ur Specific [place] 1.012 (1.005-1.030) 10/08/24 12:35 Urine Protein Negative (Negative) 10/08/24 12:35 Urine Glucose (UA) Negative (Normal) 10/08/24 12:35 Urine Ketones Negative (Negative) 10/08/24 12:35 Urine Blood Negative (Negative) 10/08/24 12:35 Urine Nitrate Negative (Negative) 10/08/24 12:35 Urine Bilirubin Negative (Negative) 10/08/24 12:35 Urine Urobilinogen 1.0 mg/dL (Negative) 10/08/24 12:35 Ur Leukocyte Esterase Negative (Negative) 10/08/24 12:35 Urine RBC 0-2 /hpf (0-2) 10/08/24 12:35 Urine WBC 0-5 /hpf (0-5) 10/08/24 12:35 Ur Squamous Epith Cells 0-5 /hpf (0-5) 10/08/24 12:35 Amorphous Sediment Not Reportable 10/08/24 12:35 Urine Bacteria None seen /hpf (NONE) 10/08/24 12:35 Hyaline Casts 0-4 /lpf H 10/08/24 12:35 No radiology studies performed this visit Discharge Plan Discharge Patient Disposition: Home Clinical Impression: Cyclical vomiting Condition: Stable Prescriptions: New lorazepam [Ativan] 2 mg tablet 2 mg buccal Q6H PRN (Reason: nausea and vomiting) Qty: 14 0RF olanzapine 10 mg tablet,disintegrating 10 mg PO Q6H PRN (Reason: nausea and vomiting) Qty: 14 0RF No Action meloxicam 15 mg tablet 15 mg PO DAILY Qty: 30 11RF Rx Instructions: take with food venlafaxine [Effexor XR] 75 mg capsule,extended release 24hr 75 mg PO DAILY Qty: 30 11RF ibuprofen 800 mg tablet 800 mg PO TID Qty: 90 3RF propranolol 20 mg tablet 20 mg PO BID fluoxetine 20 mg capsule 20 mg PO DAILY tramadol 50 mg tablet 50 mg PO Q6H PRN (Reason: pain) Qty: 14 0RF cetirizine 10 mg tablet 10 mg PO DAILY alprazolam 0.25 mg tablet 0.25 mg PO BID PRN (Reason: Anxiety) bupropion HCl 75 mg tablet 75 mg PO QAM metoclopramide HCl [Reglan] 10 mg tablet 10 mg PO Q6H PRN (Reason: nausea and vomiting) Qty: 20 0RF Discharge Orders: Discharge ED (Routine); Ordered 10/08/24 Ordered By: Wilfred Westfall Discharge Diet: Usual diet Discharge Activity: Increase activity as tolerated Patient Instructions: Opioid Safety, Pain Management, Patient Portal & Dede Instructions Activity Restrictions/Additional Instructions: Thank you for choosing [facility] for your healthcare needs today. It is very important that you follow up as instructed or that you return to the Emergency Department should you have concerns or if your condition changes or worsens in any way. You are seen in the emergency room for persistent nausea and vomiting. This improved with medications given. You are also given IV fluids. Reviewing her chart you have had extensive previous workup over the last approximately year for similar presentations. Previous advanced imaging in our facility did not show any clinically significant abnormalities. There was no significant abnormalities to her lab work today. Follow-up with your primary care your next option may be to see gastroenterology. Print Language: Romansh Coding Level of Care Code ED Machinist/Machine Builder for Bessie Yee
[2024-10-08 12:39] LABS: Hematocrit 40.0 % (36-47); Hemoglobin 13.60 g/dL (11.27-16.99); Mean Corpuscular HGB Conc 34.0 g/dL (30-55); Mean Corpuscular Hemoglobin 30.2 pg (27-33); Mean Corpuscular Volume 88.9 fl (85-98); Nucleated Red Blood Cells % 0 %; Platelet Count 275 10^3/cmm (157-399); Red Blood Count 4.50 10^6/uL (3.85-5.65); White Blood Count 6.83 10^3/uL (3.29-11.43)
[2024-10-08] MEDS: haloperidol inj 5 mg/mL INJ 1 mL IVP (12:41)
[2024-10-08] MEDS: LORazepam 1 MG/0.5 ML injection 2 MG IVP (12:41)
[2024-10-08 12:54] LABS: Glucose Urine UA Negative (Normal); Nitrate Urine Negative (Negative); Specific Gravity, Urine 1.012 (1.005-1.030)
[2024-10-08 12:58] LABS: Add Urine Microscopic? YES
[2024-10-08 12:59] LABS: Alanine Aminotransferase 16 U/L (0-33); Albumin Level 4.6 g/dL (3.5-5.2); Alkaline Phosphatase 49 U/L (35-105); Anion Gap 20.4 (5-19); Aspartate Amino Transferase 16 U/L (0-32); Blood Urea Nitrogen 7 mg/dL (6-20); Calcium 9.8 mg/dL (8.5-10.5); Carbon Dioxide 22 mmol/L (22-29); Chloride 103 mmol/L (98-107); Creatinine Clr Calc Pharmacy 99.2950; Globulin 2.5 g/dL (1.3-4.6); Glucose 124 mg/dL (65-115); Lipase 20 U/L (13-60); Osmolality Calculated 293 mOsm/kg (285-295); Potassium 3.4 mmol/L (3.5-5.1); Sodium 142 mmol/L (136-145); Total Protein 7.1 g/dL (6.6-8.7)
[2024-10-08 15:23] VITALS: BP 97/48; PULSE 80; O2SAT 100
== END 2024-10-08 15:24 | disposition home or self-care (01) ==
PROVIDERS: Emergency Provider Family Medicine
DX: R11.15 Cyclical vomiting syndrome unrelated to migraine (principal); F17.290 Nicotine dependence, other tobacco product, uncomplicated; Z79.899 Other long term (current) drug therapy
CPT/HCPCS: 80053; 81001; 83690; 85025; 96361; 96374; 96375; 99284; J1630; J2060; J7030

== ENCOUNTER 2024-11-05 14:36 | Emergency (ER) | payer OTHER, MEDICAID, SELFPAY ==
--- OUTSIDE RECORDS SUMMARY | 2024-02-08 07:30 | XMS_ITS ---
Author Organization [facility] Address [address] [place] [address] Care Team Providers Care Commission Auditor Name Role Phone Saran Salazar Primary Care Provider Farzaneh Craig Unavailable [phone] Perry Baptiste Unavailable [phone] REASON FOR VISIT N/V, gerd, wt loss Encounters Encounter Location Date Provider Diagnosis [facility] [address] [place] [phone] 02/08/2024 Perry Baptiste Plan Of Treatment No Information Progress Notes * Anna MORENO EDOB:2000 (24 yo F)Acc No.[id number]:02/08/2024 History and Physical Patient: Anna GORDON Provider: Robert Baptiste MD :2000 A ge:23 Y S ex:Female Date:02/08/2024 Address:[address] [place] [id number] Pcp:Saran Salazar Check 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
--- OUTSIDE RECORDS SUMMARY | 2024-11-05 14:42 | XMS_ITS | Patient Health Record ---
Author Organization [facility] Address [address] [place] [address] Care Team Providers Care Research Spec Name Role Phone Saran Salazar Primary Care Provider Unavailjb NathanClaudioFarzaneh Unavailable [phone] Baptiste, Perry Unavailable [phone] Fabi Lorenzana Unavailable [phone] Allergies No Known Allergies Results Component Value Reference Range Flag Notes Culture Stool 88670, 30911, 97858, 01596, 90052 Reviewed date:02/22/2024 03:35:07 PM Interpretation: Performing Lab: Notes/Report: Culture Stool Patien ANNA MORENO Culture Stool t: Culture Stool Culture Stool Accessio [id number] Culture Stool n: Culture Stool Microbiology Culture Stool PROCEDURE: Culture Stool [O1] Culture Stool SOURCE: Stool BODY SITE: Culture Stool COLLECTED DATE/TIME: 02/02/2024 15:00 PAYROLL SERVICES ANALYST RECEIVED DATE/TIME: 02/02/2024 15:13 PAYROLL SERVICES ANALYST Culture Stool START DATE/TIME: 02/02/2024 15:13 PAYROLL SERVICES ANALYST FREE TEXT SOURCE: Culture Stool FINAL REPORT Culture Stool Final Report [] Culture Stool Verified Date/Time: 02/06/2024 09:26 PAYROLL SERVICES ANALYST Culture Stool No Salmonella isolated Culture Stool No Shigella isolated Culture Stool No Yersinia isolated Culture Stool No Vibrio isolated Culture Stool No Campylobacter isolated Culture Stool No Aeromonas isolated Culture Stool No Plesiomonas isolated Culture Stool No Klebsiella oxytoc a isolated Culture Stool Order Comments Culture Stool O1: Culture Stool (Culture Stool 06007, 79727, 72174, 76455, 35757) Culture Stool Diagnosis Descriptio n: Diarrhea, unspecified CDiff PCR Rfx C diff Toxin N AP/EPI 57502, 00046 Reviewed date:02/02/2024 04:41:06 PM Interpretation: Performing Lab: Notes/Report: Diagnosis Description: Diarrhea, unspecified CDiff PCR Reflex Negative A positi ve result by PCR indicates the presence of Clostridium difficile bacteria that is capable of producing toxin. It does not indicate toxin production; treatment should be based on clinical symptoms. Toxin testing will be performed on PCR positive results. Calprotectin Fecal 71955 Reviewed date:02/22/2024 03:36:01 PM Interpretation: Performing Lab: Notes/Report: Diagnosis Description: Diarrhea, unspecified Calprotectin Fecal 63 <=49 HI REFERENCE INTERVAL: Calprotectin, Fecal by Immunoassay Less than 50 ug/g.........Normal 50-120 ug/g...............Pablo rderline elevated, test should be re-evaluated in 4-6 weeks. 121 ug/g or greater.......Elevate d Performed By: [facility] [address] [place] [address] Ip Architect: Justyn Rowan MD, PhD CLIA Number: [id number] Giardia/Cryptosporidium Scre en 11984, 37745 Reviewed date:02/03/2024 09:23:32 AM Interpretation: Performing Lab: Notes/Report: Giardia/Cryptosporidi um Screen ANNA Reid Giardia/Cryptosporidi um Screen t: Giardia/Cryptosporidi um Screen Giardia/Cryptosporidi um Screen Accessio [id number] Giardia/Cryptosporidi um Screen n: Giardia/Cryptosporidi um Screen Microbiology Giardia/Cryptosporidi um Screen PROCEDURE: Giardia/Cryptosporidiu m Giardia/Cryptosporidi um Screen Screen [O1] Giardia/Cryptosporidi um Screen SOURCE: Stool BODY SITE: Giardia/Cryptosporidi um Screen COLLECTED DATE/TIME: 02/02/2024 15:00 PAYROLL SERVICES ANALYST RECEIVED DATE/TIME: 02/02/2024 15:13 PAYROLL SERVICES ANALYST Giardia/Cryptosporidi um Screen START DATE/TIME: 02/02/2024 15:13 PAYROLL SERVICES ANALYST FREE TEXT SOURCE: Giardia/Cryptosporidi um Screen FINAL REPORT Giardia/Cryptosporidi um Screen Final Report [] Giardia/Cryptosporidi um Screen Verified Date/Time: 02/02/2024 16:06 PAYROLL SERVICES ANALYST Giardia/Cryptosporidi um Screen Negative for Giardia/Cryptosporidiu m Antigen Giardia/Cryptosporidi um Screen Order Comments Giardia/Cryptosporidi um Screen O1: Giardia/Cryptosporidiu m Screen (Giardia/Cryptosporidi um Screen 49562, 06548) Giardia/Cryptosporidi um Screen Diagnosis Description: Diarrhea, unspecified H.Pylori Antigen-Stool 16042 Reviewed date:02/22/2024 03:40:21 PM Interpretation: Performing Lab: Notes/Report: Diagnosis Description: Diarrhea, unspecified H.Pylori Antigen-Stool Negative Negative NA Performed By: [facility] [address] [place] [address] Ip Architect: Justyn Rowan MD, PhD CLIA Number: [id number] EGD, Upper GI Diagnostic-432 35 Reviewed date:02/12/2024 11:11:29 AM Interpretation: Performing Lab: Notes/Report: Strep Screen A 30891 Reviewed date:03/09/2024 09:44:12 AM Interpretation: Performing Lab: Notes/Report: Strep Screen A negative POCT-HCG NC--No CPT Reviewed date:02/11/2024 01:01:55 PM [...] Problem Gastro-esophagea l reflux disease without esophagitis (K21.9) Active confirmed [...] 03/09/2024 Encounters Encounter Location Date Provider Diagnosis [facility] [address] [place] [address] 02/08/2024 Perry Baptiste [facility] [address] [place] [address] 02/02/2024 Fabi Lorenzana Intractable nausea a nd vomiting R11.2 ; Gastroesophageal reflux disease, unspecified whether esophagitis present K21.9 ; Unintentional weight loss R63.4 and Diarrhea, unspecified type R19.7 [facility] [address] [facility] [facility] [address] [place] [address] 03/09/2024 Farzaneh Nathan Acute gastroenteritis K52.9 ; Acute bronchitis J20.9 ; Depression screen Z13.31 ; Encounter for immunization Z23 and Vaccination not carried out because of parent refusal Z28.82 [facility] [address] [place] [address] 02/02/2024 Perry Baptiste [facility] [address] [place] [address] 02/22/2024 Perry Baptiste Assessments Encounter Date Diagnosis [...] treatment. 03/09/2024 Acute bronchitis (ICD-10 - J20.9) 02/02/2024 Unintentional weight loss (ICD-10 - R63.4) 03/09/2024 Depression screen (ICD-10 - Z13.31) 02/02/2024 Diarrhea, unspecified type (ICD-10 - R19.7) [...] Insured Coverage Start Date Coverage End Date [facility] Commercial [address] [address] [place] [address] [id number] Anna MORENO Self - patient is the insured [facility] Medicaid Replacement [address] [place] [address] [id number] Anna MORENO Self - patient is the insured Medical (General) History Medical History History ICD Code anxiety Depression weight loss Surgical History Surgery Date(Month/Year) wisdom teeth extraction
[2024-11-05 14:44] VITALS: BP 103/67; PULSE 65; RESP 20; TEMP 36.9; O2SAT 100; BMI 16.2
[2024-11-05 15:18] VITALS: BP 118/83; PULSE 66; RESP 18; O2SAT 100
--- NOTE | 2024-11-05 15:33 | W.ED.NAVMDI ---
HPI - Nausea/Vomiting/Diarrhea General: Chief complaint: Nausea/Vomiting/Diarrhea Stated complaint: N/V can't keep anything down Time Seen by Provider: 11/05/24 15:04 History of Present Illness: Chief complaint is nausea vomiting and anxiety. Patient states she started vomiting this morning cannot stop. She states this has happened many times before. Related Data Home Medications ?Medication ?Instructions ?Recorded ?Confirmed fluoxetine 20 mg capsule 20 mg PO DAILY 05/13/24 10/05/24 propranolol 20 mg tablet 20 mg PO BID 05/13/24 10/05/24 alprazolam 0.25 mg tablet 0.25 mg PO BID PRN Anxiety 10/05/24 10/05/24 bupropion HCl 75 mg tablet 75 mg PO QAM 10/05/24 10/05/24 cetirizine 10 mg tablet 10 mg PO DAILY 10/05/24 10/05/24 Previous Rx's ?Medication ?Instructions ?Recorded meloxicam 15 mg tablet 15 mg PO DAILY #30 tabs 12/29/23 venlafaxine 75 mg capsule,extended 75 mg PO DAILY #30 caps 03/02/24 release 24 hr (Effexor XR) tramadol 50 mg tablet 50 mg PO Q6H PRN pain #14 tabs 05/13/24 ibuprofen 800 mg tablet 800 mg PO TID dysmenorrhea #90 tabs 05/30/24 metoclopramide HCl 10 mg tablet 10 mg PO Q6H PRN nausea and 10/05/24 (Reglan) vomiting #20 tabs lorazepam 2 mg tablet (Ativan) 2 mg buccal Q6H PRN nausea and 10/08/24 vomiting #14 tabs olanzapine 10 mg disintegrating 10 mg PO Q6H PRN nausea and 10/08/24 tablet vomiting #14 tabs promethazine 25 mg rectal 25 mg TX Q8H PRN vomiting #8 ea 11/05/24 suppository Allergies Allergy/AdvReac Type Severity Reaction Status Date / Time No Known Allergies Allergy Verified 10/08/24 12:07 [facility] ED PFSH: Medical History (Updated 11/05/24 @ 18:29 by Khang Escobedo MD) Depression Anxiety Environmental and seasonal allergies Healthy adolescent Surgical History No history of previous surgery Family History Grandfather Diabetes Stroke Denies family history of CAD (coronary artery disease) Dementia Chronic kidney disease (CKD) Anesthesia complication Cancer Hypertension Social History Smoking and tobacco/nicotine status: unknown if used tobacco/nicotine Second hand smoke exposure: No Alcohol intake: never Substance/Drug Use: never Adopted: No Caregiver/support person: No Lives independently: Yes Household members: family Housing: House Marital status: Single Number of children: 0 Highest education level completed: High School Graduate service: No Current occupational status: unemployed and student Pets and animals: Yes Do you think of yourself as: Straight/Heterosexual Current gender identity: Female Physical Exam Narrative: EXAM NARRATIVE: Patient is very anxious shaking repeatedly dry heaving. People are here requesting anxiety medicine. She has some scabs scattered on her skin. She is very thin. No signs of trauma to her head. Moist mucous membranes. Normal conjunctiva. Pupils equal and reactive. Neck is supple. Lung sounds are clear. Heart regular rhythm. Abdomen soft nontender no guarding or rebound. No CVA tenderness. Extremities warm well-perfused. No pitting edema. Speech is clear. Alert and oriented. Shows ability to reason. Course Vital Signs: Vital signs: Vital Signs Temperature 98.5 F 11/05/24 14:44 Pulse Rate 78 11/05/24 18:59 Respiratory Rate 16 11/05/24 18:59 Blood Pressure 108/60 11/05/24 18:59 Pulse Oximetry 98 11/05/24 18:59 Oxygen Delivery Me thod Room Air 11/05/24 15:18 MDM - Nausea/Vomiting/Diarrhea Medical Decision Making Patient presents with repeatedly dry heaving. She is very anxious. She is repeatedly requesting medicine for anxiety. She states her anxiety and nausea seem to flareup together when this happens. She denies any prior abdominal surgeries. She does smoke marijuana. She states she has been in the hospital for this many times before and this is no different than prior episodes. Denies any abdominal pain other than states she feels some soreness from repeatedly dry heaving. No dysuria. She does not think she is but states that there is possible and she is right before her menstrual cycle. I recommended we get her test prior to choosing medications. She agrees with this plan. She denies any headache or head injury. Denies chest pain or shortness of breath or cough or nasal congestion or fever or recent illness. Denies any black or bloody stools or emesis. Patient repeatedly dry heaving. No significant emesis in the basin. Bowel obstruction, cyclical vomiting, withdrawal, anxiety, central, intra-abdominal infection, gastroenteritis, extremely broad differential. Patient states she had a normal bowel movement yesterday. I ordered 1 L normal saline IV fluid bolus. I ordered CBC CMP lipase and test. Patient test was negative. White count was markedly elevated. Creatinine was not elevated. Liver enzymes were not elevated. Lipase was not elevated. Patient blood glucose mildly elevated bicarb low but not suggestive of DKA. Patient denies history of diabetes. Patient given Compazine and Benadryl IV. Patient now sleeping. No further vomiting. She states she feels much better. I discussed with her doing a CT scan and risk and benefit. I advised regarding elevated white blood cell count. I reviewed record and patient has CT scan in January which is without acute process noted at that time. I advised patient balance of risk and benefit of CT and she feels she is not having any pain and I reexamined her and she has no abdominal tenderness or guarding or rebound. I advised patient I cannot exclude intra-abdominal process requiring emergent surgery or intervention such as bowel obstruction or appendicitis among others however low probability based on exam and history and recurrent symptoms. Patient states that she felt fine today until 10 AM. Mother is now here and also further history obtained from mother and I discussed with mother as well. After informed discussion the patient feels she is not having pain and would like to be treated outpatient. She has not had further vomiting. She feels she can go home. I advised patient at length limits of ED evaluation broad differential. She decided to not do a CT scan at this time after informed discussion however I advised very close return instructions and to come back if abdominal pain or persistent symptoms and need for ongoing outpatient follow-up. The mother states they have seen a product development director and had a scope done. She is also had a HIDA scan done. She has been tested for alpha gal. I advised very broad differential with presenting symptoms including abdominal migraines, SMA syndrome, food intolerance, gastroparesis, marijuana associated cyclic vomiting, among many others. Patient alert oriented and wants discharge. I ordered Pepcid for her and a prescription for Phenergan suppositories. I advised dangers of combining antidepressants and other nausea medicines with Phenergan and precautions regarding QT. EKG obtained which showed QT corrected 421. Patient EKG to my interpretation shows findings consistent with ectopic atrial rhythm and some motion artifact. Advised outpatient follow-up and return instructions. Lab Data 11/05/24 15:36 11/05/24 15:36 Laboratory Results WBC 22.66 10^3/uL (3.29-11.43) H 11/05/24 15:36 RBC 4.41 10^6/uL (3.85-5.65) 11/05/24 15:36 Hgb 13.60 g/dL (11.27-16.99) 11/05/24 15:36 Hct 40.5 % (36-47) 11/05/24 15:36 MCV 91.8 fl (85-98) 11/05/24 15:36 MCH 30.8 pg (27-33) 11/05/24 15:36 MCHC 33.6 g/dL (30-55) 11/05/24 15:36 RDW 13.3 % (12.1-15.1) 11/05/24 15:36 Plt Count 272 10^3/cmm (157-399) 11/05/24 15:36 MPV 10.7 fL (7.4-10.4) H 11/05/24 15:36 Neut % (Auto) 90.9 % 11/05/24 15:36 Lymph % (Auto) 3.8 % 11/05/24 15:36 [place] % (Auto) 4.4 % 11/05/24 15:36 Eos % (Auto) 0.0 % 11/05/24 15:36 Baso % (Auto) 0.3 % 11/05/24 15:36 Neut # (Auto) 20.59 10^3/uL (1.8-7.7) H 11/05/24 15:36 Lymph # (Auto) 0.9 10^3/uL (0.8-4.8) 11/05/24 15:36 [place] # (Auto) 1.0 10^3/uL (0.2-0.9) H 11/05/24 15:36 Eos # (Auto) 0.0 10^3/uL (0.0-0.8) 11/05/24 15:36 Baso # (Auto) 0.1 10^3/uL (0.0-0.1) 11/05/24 15:36 Nucleated RBC % (auto) 0 % 11/05/24 15:36 Nucleated RBCs # 0.0 /100WBC 11/05/24 15:36 Sodium 141 mmol/L (136-145) 11/05/24 15:36 Potassium 3.8 mmol/L (3.5-5.1) 11/05/24 15:36 Chloride 102 mmol/L (98-107) 11/05/24 15:36 Carbon Dioxide 18 mmol/L (22-29) L 11/05/24 15:36 Anion Gap 24.8 (5-19) H 11/05/24 15:36 BUN 11 mg/dL (6-20) 11/05/24 15:36 Creatinine 0.6 mg/dL (0.5-0.9) 11/05/24 15:36 GFR Calculation 125.0 mL/min (90-130) 11/05/24 15:36 Glucose 151 mg/dL (65-115) H 11/05/24 15:36 Calculated Osmolality 294 mOsm/kg (285-295) 11/05/24 15:36 Calcium 9.8 mg/dL (8.5-10.5) 11/05/24 15:36 Total Bilirubin 0.5 mg/dL (0.15-1.2) 11/05/24 15:36 AST 25 U/L (0-32) 11/05/24 15:36 ALT 19 U/L (0-33) 11/05/24 15:36 Alkaline Phosphatase 65 U/L (35-105) 11/05/24 15:36 Total Protein 7.8 g/dL (6.6-8.7) 11/05/24 15:36 Albumin 4.8 g/dL (3.5-5.2) 11/05/24 15:36 Globulin 3.0 g/dL (1.3-4.6) 11/05/24 15:36 Lipase 8 U/L (13-60) L 11/05/24 15:36 HCG, Qual Negative (Negative) 11/05/24 15:36 Urine Color Yellow (Yellow) 11/05/24 13:36 Urine Appearance Clear (CLEAR) 11/05/24 13:36 Urine pH >=9.0 (5-7) A 11/05/24 13:36 Ur Specific Joes 1.022 (1.005-1.030) 11/05/24 13:36 Urine Protein 2+ (Negative) A 11/05/24 13:36 Urine Glucose (UA) Negative (Normal) 11/05/24 13:36 Urine Ketones 2+ (Negative) H 11/05/24 13:36 Urine Blood Negative (Negative) 11/05/24 13:36 Urine Nitrate Negative (Negative) 11/05/24 13:36 Urine Bilirubin Negative (Negative) 11/05/24 13:36 Urine Urobilinogen 1.0 mg/dL (Negative) 11/05/24 13:36 Ur Leukocyte Esterase Trace (Negative) A 11/05/24 13:36 Urine RBC None /hpf (0-2) 11/05/24 13:36 Urine WBC 5-10 /hpf (0-5) H 11/05/24 13:36 Ur Squamous Epith Cells 5-10 /hpf (0-5) H 11/05/24 13:36 Amorphous Sediment Not Reportable 11/05/24 13:36 Urine Bacteria Trace /hpf (NONE) 11/05/24 13:36 All radiology interpretation(s) finalized by discharge Discharge Plan Discharge Patient Disposition: Home Clinical Impression: Acute vomiting, Acute dehydration Condition: Stable Prescriptions: New promethazine 25 mg suppository 25 mg TX Q8H PRN (Reason: vomiting) Qty: 8 0RF No Action meloxicam 15 mg tablet 15 mg PO DAILY Qty: 30 11RF Rx Instructions: take with food venlafaxine [Effexor XR] 75 mg capsule,extended release 24hr 75 mg PO DAILY Qty: 30 11RF ibuprofen 800 mg tablet 800 mg PO TID Qty: 90 3RF lorazepam [Ativan] 2 mg tablet 2 mg buccal Q6H PRN (Reason: nausea and vomiting) Qty: 14 0RF olanzapine 10 mg tablet,disintegrating 10 mg PO Q6H PRN (Reason: nausea and vomiting) Qty: 14 0RF propranolol 20 mg tablet 20 mg PO BID fluoxetine 20 mg capsule 20 mg PO DAILY tramadol 50 mg tablet 50 mg PO Q6H PRN (Reason: pain) Qty: 14 0RF cetirizine 10 mg tablet 10 mg PO DAILY alprazolam 0.25 mg tablet 0.25 mg PO BID PRN (Reason: Anxiety) bupropion HCl 75 mg tablet 75 mg PO QAM metoclopramide HCl [Reglan] 10 mg tablet 10 mg PO Q6H PRN (Reason: nausea and vomiting) Qty: 20 0RF Discharge Orders: Discharge ED (Routine); Ordered 11/05/24 Ordered By: Khang Escobedo Patient Instructions: Opioid Safety, Pain Management, Patient Portal & Dede Instructions Activity Restrictions/Additional Instructions: Please come back if continued vomiting, if you develop abdominal pain, fever, weakness, getting worse, any concerns. Make sure to drink plenty of fluid. Come back if unable to keep fluid down. As discussed come back if concerning abdominal pain any worse or concerns. Talk to your doctor about follow-up with product development director. Follow-up on your test results with your doctor. Print Language: Prydeinig Coding Level of Care Code ED Auto Suspension And Steering Mechanic for Bessie Yee
[2024-11-05 15:50] LABS: Hematocrit 40.5 % (36-47); Hemoglobin 13.60 g/dL (11.27-16.99); Mean Corpuscular HGB Conc 33.6 g/dL (30-55); Mean Corpuscular Hemoglobin 30.8 pg (27-33); Mean Corpuscular Volume 91.8 fl (85-98); Nucleated Red Blood Cells % 0 %; Platelet Count 272 10^3/cmm (157-399); Red Blood Count 4.41 10^6/uL (3.85-5.65); White Blood Count 22.66 10^3/uL (3.29-11.43)
[2024-11-05 15:55] LABS: HCG Qualitative Urine. Negative (Negative)
[2024-11-05 15:56] LABS: Glucose Urine UA Negative (Normal); Nitrate Urine Negative (Negative); Specific Gravity, Urine 1.022 (1.005-1.030)
[2024-11-05 16:05] LABS: HCG, Serum Qual Negative (Negative)
--- NOTE | 2024-11-05 16:08 | ECG_ITS ---
[facility]: 2024[facility]05 Pat Name: Anna Moreno Department: Room: Gender: Female Director Of Valuation: : 2000 Requested By: Khang Escobedo Order Number: [id number] Mendez MD: Dieter George M.D. Measurements Intervals [place] Rate: 72 P: -52 WI: 157 QRS: 83 QRSD: 64 T: 80 QT: 416 QTc: 456 Interpretive Statements ECTOPIC ATRIAL RHYTHM SEPTAL MYOCARDIAL INFARCTION , OF INDETERMINATE AGE [40+ ms Q WAVE IN V1/V2] No previous ECG available for comparison Electronically Signed On 11-05-2024 21:58:58 CDT by Dieter George M.D. [email or web address]
[2024-11-05 16:09] LABS: Add Urine Microscopic? YES; UA Manual Slide Review YES
[2024-11-05 16:11] LABS: Alanine Aminotransferase 19 U/L (0-33); Albumin Level 4.8 g/dL (3.5-5.2); Alkaline Phosphatase 65 U/L (35-105); Anion Gap 24.8 (5-19); Aspartate Amino Transferase 25 U/L (0-32); Blood Urea Nitrogen 11 mg/dL (6-20); Calcium 9.8 mg/dL (8.5-10.5); Carbon Dioxide 18 mmol/L (22-29); Chloride 102 mmol/L (98-107); Creatinine Clr Calc Pharmacy 115.8442; Globulin 3.0 g/dL (1.3-4.6); Glucose 151 mg/dL (65-115); Lipase 8 U/L (13-60); Osmolality Calculated 294 mOsm/kg (285-295); Potassium 3.8 mmol/L (3.5-5.1); Sodium 141 mmol/L (136-145); Total Protein 7.8 g/dL (6.6-8.7)
[2024-11-05] MEDS: diphenhydrAMINE 50 mg/mL SDV 1mL IVP (16:20)
[2024-11-05 17:09] VITALS: BP 120/86; O2SAT 100
[2024-11-05 18:04] VITALS: BP 119/82; O2SAT 99
--- NOTE | 2024-11-05 18:40 | ECG_ITS ---
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 Measurements Intervals [place] Rate: 78 P: -77 ID: [id number] QRS: 86 QRSD: 65 T: 89 QT: 388 QTc: 442 Interpretive Statements ECTOPIC ATRIAL RHYTHM SEPTAL MYOCARDIAL INFARCTION , OF INDETERMINATE AGE [40+ ms Q WAVE IN V1/V2] Compared to ECG 11/05/2024 17:49:35 No significant changes Electronically Signed On 11-05-2024 22:02:41 CDT by Dieter George M.D. [email or web address]
[2024-11-05 18:59] VITALS: BP 108/60; PULSE 78; RESP 16; O2SAT 98
== END 2024-11-05 19:00 | disposition home or self-care (01) ==
PROVIDERS: Emergency Provider Emergency Medicine
DX: R11.10 Vomiting, unspecified (principal); E86.0 Dehydration
CPT/HCPCS: 80053; 81001; 81025; 83690; 84703; 85025; 93005; 96374; 96375; 99284; J0780; J1200; J3490; J7030

== ENCOUNTER → 2024-12-15 15:32 | Outpatient (BNVA) | payer OTHER, MEDICAID, SELFPAY | PROVIDERS: PCP Family Medicine; Visit Provider Family Medicine | DX: F41.9 Anxiety disorder, unspecified (principal); F32.A Depression, unspecified; R63.4 Abnormal weight loss | CPT/HCPCS: 84439; 84443; 85025 ==

== ENCOUNTER → 2025-01-25 10:40 | Outpatient (BNVA) | payer MEDICAID, SELFPAY | PROVIDERS: PCP Family Medicine; Visit Provider Nurse Practitioner Women's Health | DX: Z30.430 Encounter for insertion of intrauterine contraceptive device (principal); Z12.4 Encounter for screening for malignant neoplasm of cervix | CPT/HCPCS: 81025; 87624 ==